=== PATIENT | male | born 1950 | race Caucasian/White ===

== ENCOUNTER 2017-10-25 15:38 | Outpatient (CLI) | payer MEDICARE ==
[2017-10-25 16:22] LABS: #Eosinphils 0.2 thou/uL (0.0-0.7); #Lymphocytes 1.1 thou/uL (1.20-3.40); #Monocytes 0.6 thou/uL (0.11-0.59); #Neutrophils 3.2 thou/uL (1.40-6.50); %Basophils 0.2 % (0.0-1.0); %Eosinophils 4.4 % (0.0-10.0); %Lymphocytes 20.9 % (21.0-51.0); %Monocytes 11.4 % (0.0-10.0); Hematocrit 50.2 % (42.0-52.0); Mean Platelet Volume 6.9 fL (7.4-10.4); Red Blood Cell (RBC) Count 5.28 mill/uL (4.70-6.10)
== END 2017-10-25 15:39 | disposition home or self-care (01) ==
LOC: LABBT 15:38
PROVIDERS: ATTEND Orthopaedic Surgery Hand Surgery
DX: Z01.812 Encounter for preprocedural laboratory examination (principal); M65.312 Trigger thumb, left thumb
CPT/HCPCS: 85025

== ENCOUNTER 2017-10-26 07:33 | Day surgery (SDC) | payer MEDICARE ==
[2017-10-25 15:49] VITALS: BMI 31.0
[2017-10-26] MEDS ORDERED: CEFAZOLIN/Water 2 GM/20 ML SYRINGE ONE (08:09)
[2017-10-26] MEDS ORDERED: Labetalol HCl 100 MG/20 ML VIAL ONE (08:09)
[2017-10-26] MEDS ORDERED: Betamet Acet/Betamet Na Ph 30 MG/5 ML VIAL ONE (09:15)
[2017-10-26] MEDS ORDERED: Bupivacaine PF 0.5% 30 ML VIAL ONE (09:15)
[2017-10-26] MEDS ORDERED: Bacitracin Zinc Ointment 30 gm TUBE ONE (09:15)
[2017-10-26] MEDS ORDERED: Fentanyl 100 MCG/2 ML VIAL ONE (09:46)
[2017-10-26] MEDS ORDERED: Midazolam HCl 2 mg/2 ml Vial ONE (10:07)
[2017-10-26] MEDS ORDERED: Ketorolac Tromethamine 30 MG/ML VIAL ONE ×2 (11:10→16:49)
--- NOTE | 2017-10-26 14:02 | OP ---
PREOPERATIVE DIAGNOSIS: Left thumb trigger digit. POSTOPERATIVE DIAGNOSIS: Left thumb trigger digit. FINDINGS: Very thick A1 swapnil, trigger thumb with some early scalloping of the tendon, but no lacer ation, flexor pollicis longus. PROCEDURE PERFORMED: Left thumb trigger digit release. TOURNIQUET TIME: 11 minutes. BLOOD LOSS: 5 mL. INJECTABLE: 8 mL of 0.5% Marcaine given before incision. COMPLICATIONS: None. INDICATIONS FOR PROCEDURE: The patient failed conservative treatment including injection, now has st age 3-4 triggering with decreased motion. DESCRIPTION OF PROCEDURE: After successful general LMA technique by [facility], the patient limb prepped and draped. Tourniquet inflated to 250 mmHg pressure after time out was given. He the n had the longitudinal incision outlined which is 1.5 cm long, centered over the palpable subcutaneou s A1 swapnil mass. Carried through skin, subcutaneous tissue, identified both the ulnar and radial di gital nerves, protected them, they were not in those field. Then, with them gently retracted, we vis ualized the A1 swapnil, released in the midline with a Platinum blade. We then lifted the tendon up out of the bed and found no masses. Again, we saw all the impediments. We saw some early fraying of th e tendon, but no true laceration was seen. The tourniquet was deflated. Hemostasis obtained. A 3 m L of Celestone dripped over the tendon. Wound was closed in interrupted 4-0 nylon. The patient left the operating room after given an additional 4 mL of 0.5% Marcaine with a soft dressing. No evidenc e of anesthetic or operative complication.
[2017-10-26] MEDS ORDERED: ePHEDrine/0.9% NaCl/PF SYRINGE 50 mg/10 ml ONE (16:49)
[2017-10-26] MEDS ORDERED: diphenhydrAMINE 50 MG/ML VIAL ONE (16:49)
[2017-10-26] MEDS ORDERED: Metoclopramide HCl 10 MG/2 ML VIAL ONE (16:49)
[2017-10-26] MEDS ORDERED: Propofol 200 MG/20 ML VIAL ONE (16:49)
[2017-10-26] MEDS ORDERED: Ondansetron HCl/PF 4 MG/2 ML Vial ONE (16:49)
[2017-10-26] MEDS ORDERED: Dexamethasone 20 MG/5 ML VIAL ONE (16:49)
[2017-10-26] MEDS ORDERED: Glycopyrrolate 0.2 MG/ML 5 ML SYRINGE ONE (16:49)
[2017-10-26] MEDS ORDERED: Lidocaine 1% PF 5 ML VIAL ONE (16:49)
== END 2017-10-26 12:20 | disposition home or self-care (01) ==
LOC: SDC 07:33
PROVIDERS: ATTEND Orthopaedic Surgery Hand Surgery
PROC: 0LN80ZZ Release Left Hand Tendon, Open Approach (ICD-10-PCS; principal; 2017-10-26)
DX: M65.312 Trigger thumb, left thumb (principal); I25.10 Atherosclerotic heart disease of native coronary artery without angina pectoris; I10 Essential (primary) hypertension; E03.9 Hypothyroidism, unspecified; H91.90 Unspecified hearing loss, unspecified ear; M54.9 Dorsalgia, unspecified; G89.29 Other chronic pain; F10.11 Alcohol abuse, in remission; M19.91 Primary osteoarthritis, unspecified site; E78.5 Hyperlipidemia, unspecified; E29.1 Testicular hypofunction; G47.33 Obstructive sleep apnea (adult) (pediatric); F17.200 Nicotine dependence, unspecified, uncomplicated; Z79.82 Long term (current) use of aspirin; Z79.51 Long term (current) use of inhaled steroids; Z79.52 Long term (current) use of systemic steroids; Z79.899 Other long term (current) drug therapy; Z91.048 Other nonmedicinal substance allergy status; Z95.1 Presence of aortocoronary bypass graft; Z98.890 Other specified postprocedural states
CPT/HCPCS: 96372; J0131; J0702; J1100; J1200; J1885; J2001; J2250; J2405; J2704; J2765; J3010; S0020

== ENCOUNTER 2017-12-12 14:24 | Outpatient (CLI) | payer MEDICARE ==
--- NOTE | 2017-12-12 15:52 | MRI ---
EXAM: MRI OF BRAIN WITHOUT CONTRAST 12/12/17 HISTORY: Memory deficit. Symptoms x1 year. COMPARISON: None. TECHNIQUE: Brain MRI is performed without intravenous gadolinium administration. Multisequential, multiplanar im aging is performed. FINDINGS: No hemorrhage on the axial gradient echo sequence. Calvarium has a normal T1 marrow signal intensity. Midline brain parenchymal structures are unremarkable. No parenchymal mass, mass effect or midline shift. Brain volume is age appropriate. Cortical og-whi te matter differentiation is preserved. Ventricles and sulci are patent and symmetric. Minimal T2 and FLAIR white matter hyperintensities, likely due to chronic small vessel ischemic avendaño e. Remote lacunar infarct involving the medial left thalamus. Central arterial flow voids are maintained . Absent restricted diffusion. IMPRESSION: 1. No acute intracranial process. 2. Age appropriate atrophy. 3. Minimal chronic small vessel ischemic changes of the white matter. POS: EYAL
== END 2017-12-12 14:25 | disposition home or self-care (01) ==
LOC: SCSMRI 14:24
PROVIDERS: ATTEND Family Medicine
DX: R41.3 Other amnesia (principal); I10 Essential (primary) hypertension; I25.10 Atherosclerotic heart disease of native coronary artery without angina pectoris; G93.89 Other specified disorders of brain
CPT/HCPCS: 70551

== ENCOUNTER 2018-01-31 13:49 | Outpatient (CLI) | payer MEDICARE ==
--- NOTE | 2018-01-31 15:46 | CT ---
CT LUMBAR SPINE: Technique: Multiple axial tomograms were obtained through the lumbar spine with multiplanar reconstru ction. Indications: Lumbar radiculopathy. Prior lumbar surgery. FINDINGS: The lumbar vertebra maintain height and alignment. Degenerative disc changes are seen with loss of di sc space at all levels. There is gas in the disc space at several levels. There are pedicle screws in place transfixing L3, L4, and L5. There is fracture of the pedicle screw on the left at L5. Pedicle screw on the right at L5 shows increased lucency surrounding the proximal portion of this ped icle screw within the L5 pedicle suggesting loosening and instability at this level. Posterior pricilla ctomy changes are noted at L3-4 and L4-5. L1-2: Mild disc bulge. Mild facet hypertrophy. No significant central canal or foraminal stenosis. L2-3: Mild diffuse disc bulge. Facet and ligamentous hypertrophy is more pronounced. Moderate central canal stenosis. Mild bilateral foraminal narrowing from the disc bulge and facet hypertrophy. L3 pedical screws appear adequately positioned. L3-4: Posterior bulge and spurring abutt the thecal sac. Posterior laminectomy change. No central can al stenosis. Mild foraminal narrowing from the facet hypertrophy. The left pedicle screw mildly obscures the lateral recess on the left. There are posterior laminectom y change. No central canal stenosis. L4-5: There is posterior spurring abutting the thecal sac and there is bilateral foraminal stenosis d ue to hypertrophic change. Pedicle screws at L5 appear adequately positioned. There is fracture of the pedicle screw on the left as noted above and there is apparent loosening in the right pedicle screw within the pedicle as note d above. L5-S1: Broad based bulge abuts the anterior thecal sac. There is bilateral foraminal stenosis due to diffuse disc bulge and hypertrophic change encroaching into the foramina bilaterally. IMPRESSION: 1. Post op changes with pedicle screws at L3, L4, and L5 levels. Fracture of the pedicle screw on the left at L5 and loosening of the pedicle screw within the pedicle on the right at L5 as described abo ve. 2. Findings at each disc space as noted above. POS: MONROE
== END 2018-01-31 13:50 | disposition home or self-care (01) ==
LOC: TBSIIMAG 13:49
PROVIDERS: ATTEND Neurological Surgery
DX: M51.16 Intervertebral disc disorders with radiculopathy, lumbar region (principal); M48.061 Spinal stenosis, lumbar region without neurogenic claudication; M99.83 Other biomechanical lesions of lumbar region; T84.296A Other mechanical complication of internal fixation device of vertebrae, initial encounter
CPT/HCPCS: 72131

== ENCOUNTER 2018-03-06 14:07 | Outpatient (CLI) | payer MEDICARE ==
[2018-03-06 15:39] LABS: Hemoglobin 15.8 g/dL (14.0-18.0); Mean Corpuscular HGB CONC 33.1 g/dL (32.0-36.0); Mean Corpuscular Volume 93.7 fl (80.0-94.0); Mean Platelet Volume 7.4 fL (7.4-10.4); Platelet Count 152 thou/uL (130-400); RBC Distribution Width 14.9 % (11.5-14.5); Red Blood Cell (RBC) Count 5.08 mill/uL (4.70-6.10); White Blood Cell (WBC) Count 5.1 thou/uL (4.8-10.8)
[2018-03-06 15:57] LABS: Anion Gap 12 mmol/L (10-20); BUN (Urea Nitrogen) 17 mg/dL (8.4-25.7); Calc. Creatinine Clearance 0 mL/min (70-130); Calcium 9.8 mg/dL (7.8-10.44); Carbon Dioxide 29 mmol/L (23-31); Chloride 101 mmol/L (98-107); Estimated GFR-MDRD 57; Glucose 106 mg/dL (80-115); Potassium 4.2 mmol/L (3.5-5.1); Sodium 138 mmol/L (136-145)
== END 2018-03-06 14:08 | disposition home or self-care (01) ==
LOC: LABBT 14:07
PROVIDERS: ATTEND Neurological Surgery
DX: Z01.818 Encounter for other preprocedural examination (principal); M54.16 Radiculopathy, lumbar region
CPT/HCPCS: 80048; 85027; 93005; 93010

== ENCOUNTER 2018-03-06 14:30 | Inpatient (IN) | payer MEDICARE ==
[2018-03-06 14:31] VITALS: BMI 29.3
--- NOTE | 2018-03-19 23:11 | HP ---
HISTORY OF PRESENT ILLNESS: Mr. Irizarry is known to us for distant lumbar decompression and fusion in 2014 and returns now for roughly 6 months for rest of the L4 pain bilaterally, right worse than left . He has a new CT scan that reveals fracture of one of his L5 screws as well as loosening of the oth er L5 screw. He hopes to move forward with a surgical treatment to remedy this. PAST MEDICAL HISTORY: Significant for coronary arterial disease, hypotestosteronism, hypertension, h yperlipidemia, hypothyroidism, and seasonal allergies. CURRENT MEDICATIONS: Crestor, losartan, carvedilol, lansoprazole, levothyroxine, testosterone, cloni dine, and fluticasone. ALLERGIES: No known drug allergies. PHYSICAL EXAMINATION: The patient is alert and oriented x3. Gait is mildly antalgic. Lower extremi ty motor exam is normal. ASSESSMENT: Lumbar fusions screw fracture with back pain and lumbar radiculopathy. PLAN: Dr. Rainey met with the patient, reviewed imaging and advocated for exploration of fusion const ruct removal of hardware, L4 facetectomy and extension of fusion. He explained to the patient the ri sks, benefits, and alternatives of the procedure. The patient expressed understanding and would like to move forward with surgery as discussed. I do believe the patient is mentally competent and capab le of making medical decision for his myself and we will move forward with surgery as planned. Valeriano Betancourt PA-C, dictating for Dr. Raniey.
[2018-03-27] MEDS ORDERED: Fentanyl 100 MCG/2 ML VIAL ONE ×2 (06:26→09:48)
[2018-03-27] MEDS ORDERED: CEFAZOLIN/Water 2 GM/20 ML SYRINGE ONE (06:43)
[2018-03-27] MEDS ORDERED: Bupivacaine HCl 0.5%/Epinephrine 1:200,000/PF 30 ml Vial ONE (07:55)
[2018-03-27] MEDS ORDERED: Thrombin 5000 UNITS/5 ML VIAL ONE (08:12)
[2018-03-27] MEDS ORDERED: HYDROmorphone 0.5 MG/0.5 ML SYRINGE ONE (09:11)
--- NOTE | 2018-03-27 10:28 | OP ---
DATE OF PROCEDURE: 03/27/2018 SURGEON: Brennen Rainey M.D. RECREATION THERAPY AIDES TEACHER: None. INDICATIONS: Pain and hardware malfunction. PROCEDURES: Exploration of fusion, removal of hardware, replacement of hardware, placement of allogr aft, placement of autograft, and facetectomy at L4-5. ANESTHESIA: General. TECHNIQUE: The patient was brought into the operating room and placed under anesthesia. He was flip ped from a supine to prone position on the operating room table. His old linear incision was identif ied and prepped and draped in the usual sterile fashion. Following appropriate operative pause, the incision was created. The soft tissues were swept away from midline. Self-retaining retractors were placed in the wound for optimal exposure. After confirming the appropriate levels of C-arm fluorosc opy, I was able to identify all six screw heads. All set screws were removed. The two rods were rem merritt. The lower L5 screws were removed bilaterally as these were the fractured screws. Two smaller rods were then placed across the screw heads at L3 and L4 where set screws were placed and final tigh tened. I then redirected my attention to the lateral recesses at L4-5 and performed generous facetec miguel and foraminotomy over the right more so than the left exiting nerve roots. Allograft and autogr aft material was then placed within the confines of the instrumentation construct. The wound was the n irrigated. Hemostasis was maintained throughout. The wound was then closed in anatomic layers and a pressure dressing was applied. There were no known procedural complications.
[2018-03-27] MEDS ORDERED: Ondansetron HCl/PF 4 MG/2 ML Vial IM PRN (11:11)
[2018-03-27] MEDS ORDERED: Promethazine 25 MG TAB PO PRN (11:11)
[2018-03-27] MEDS ORDERED: Promethazine HCl 25 MG/ML VIAL IM PRN (11:11)
[2018-03-27] MEDS ORDERED: Cyclobenzaprine 10 MG TAB PO PRN (11:11)
[2018-03-27] MEDS ORDERED: Acetaminophen/Codeine 30-300mg Tablet PO PRN ×2 (11:11)
[2018-03-27] MEDS ORDERED: Promethazine HCl 12.5 MG SUPP PR PRN (11:11)
[2018-03-27] MEDS ORDERED: Morphine 4 MG/ML VIAL SLOW IVP PRN (11:17)
[2018-03-27] MEDS: Ketorolac Tromethamine 30 MG/ML VIAL IVP SCH ×3 (12:05→23:23)
[2018-03-27] MEDS: Sodium Chloride 0.9% 1,000 ML IV SCH (12:05)
[2018-03-27] MEDS ORDERED: HYDROcodone/Acetaminophen 10/325 mg Tablet PO PRN (12:22)
[2018-03-27] MEDS ORDERED: PROPOFOL 200 MG/20 ML VIAL ONE (13:54)
[2018-03-27] MEDS ORDERED: ePHEDrine/0.9% NaCl/PF SYRINGE 50 mg/10 ml ONE (13:54)
[2018-03-27] MEDS ORDERED: Dexamethasone 20 MG/5 ML VIAL ONE (13:54)
[2018-03-27] MEDS ORDERED: Ondansetron HCl/PF 4 MG/2 ML Vial ONE (13:54)
[2018-03-27] MEDS ORDERED: diphenhydrAMINE 50 MG/ML VIAL ONE (13:54)
[2018-03-27] MEDS ORDERED: Metoclopramide HCl 10 MG/2 ML VIAL ONE (13:54)
[2018-03-27] MEDS ORDERED: Ketorolac Tromethamine 30 MG/ML VIAL ONE (13:54)
[2018-03-27] MEDS ORDERED: Lidocaine 1% PF 5 ML VIAL ONE (13:54)
[2018-03-27] MEDS: CEFAZOLIN/Water 2 GM/20 ML SYRINGE SLOW IVP SCH ×2 (14:09→21:28)
[2018-03-27] MEDS ORDERED: Prevnar 13-Val Conj/PF 0.5 ML SYRINGE IM ONE (16:00)
[2018-03-27] MEDS ORDERED: Losartan 25 MG TAB PO SCH (21:00)
[2018-03-27] MEDS ORDERED: Rosuvastatin 20 MG TAB PO SCH (21:00)
[2018-03-27] MEDS: Carvedilol 6.25 MG TAB PO SCH (21:28)
[2018-03-27] MEDS: cloNIDine 0.1 MG TAB PO SCH (21:30)
[2018-03-27] MEDS: Morphine 4 MG/ML VIAL SLOW IVP PRN (23:31)
[2018-03-28] MEDS: Sodium Chloride 0.9% 1,000 ML IV SCH (02:16)
[2018-03-28] MEDS: Morphine 4 MG/ML VIAL SLOW IVP PRN (04:01)
[2018-03-28] MEDS ORDERED: Levothyroxine Sodium 50 MCG TAB PO SCH (06:00)
[2018-03-28] MEDS: Ketorolac Tromethamine 30 MG/ML VIAL IVP SCH ×2 (06:03→11:55)
[2018-03-28 08:16] VITALS: BP 125/79; TEMP 98.3
[2018-03-28] MEDS: cloNIDine 0.1 MG TAB PO SCH (08:37)
[2018-03-28] MEDS: Carvedilol 6.25 MG TAB PO SCH (08:38)
[2018-03-28] MEDS ORDERED: Fluticasone Propionate Nasal Spray 16 gm Bottle NASAL SCH (09:00)
[2018-03-29] MEDS ORDERED: Anastrozole 1 MG TAB PO SCH (09:00)
[2018-04-03] MEDS ORDERED: TESTOSTERONE CYPIONATE 50 MG IM SCH (09:00)
== END 2018-03-28 12:00 | disposition home or self-care (01) | DRG 460 ==
LOC: CANPREIN → SURG A 03-27 05:39 → SURG B 03-27 10:27
PROVIDERS: ADMIT Neurological Surgery; ATTEND Neurological Surgery
PROC: 0SG0071 Fusion of Lumbar Vertebral Joint with Autologous Tissue Substitute, Posterior Approach, Posterior Column, Open Approach (ICD-10-PCS; principal; 2018-03-27)
PROC: 0SP004Z Removal of Internal Fixation Device from Lumbar Vertebral Joint, Open Approach (ICD-10-PCS; 2018-03-27)
PROC: 01NB0ZZ Release Lumbar Nerve, Open Approach (ICD-10-PCS; 2018-03-27)
DX: T84.226A Displacement of internal fixation device of vertebrae, initial encounter (principal); M54.16 Radiculopathy, lumbar region; I25.10 Atherosclerotic heart disease of native coronary artery without angina pectoris; I10 Essential (primary) hypertension; E78.5 Hyperlipidemia, unspecified; E03.9 Hypothyroidism, unspecified; Z79.899 Other long term (current) drug therapy; Y83.1 Surgical operation with implant of artificial internal device as the cause of abnormal reaction of the patient, or of later complication, without mention of misadventure at the time of the procedure
CPT/HCPCS: 76001; 90471; 90670; A4216; C1713; C1768; G0009; J0670; J1100; J1170; J1200; J1885; J2001; J2270; J2405; J2704; J2765; J3010

== ENCOUNTER 2018-05-16 08:33 | Outpatient (CLI) | payer MEDICARE ==
--- NOTE | 2018-05-16 09:10 | RAD ---
TWO VIEWS OF LUMBOSACRAL SPINE: COMPARISON: CT lumbar spine 01/31/18. HISTORY: Lumbar radiculopathy. The patient has had surgery. Followup exam. FINDINGS: Two views of the lumbosacral spine show postsurgical changes from L3 through L5. There are previousl y seen fracture pedicle screws at L5. Since the prior examination, the more inferior aspect of the r ods span the pedicle screws and the more posterior aspect of the L5 pedicle screws have been removed. There is still hardware spanning the L3 and L4 pedicle screws. No perihardware lucency is identifi ed. Moderate posterior facet arthrosis is seen in the lower lumbosacral spine. The patient has had laminectomies at L4 and L5. The vertebral bodies demonstrate normal alignment without subluxation. IMPRESSION: Postsurgical changes of the lumbar spine as above. POS: EYAL
== END 2018-05-16 08:34 | disposition home or self-care (01) ==
LOC: TBSIIMAG 08:33
PROVIDERS: ATTEND Neurological Surgery
DX: M54.16 Radiculopathy, lumbar region (principal); M54.5 Low back pain; Z98.890 Other specified postprocedural states
CPT/HCPCS: 72100

== ENCOUNTER 2018-06-27 14:26 | Outpatient (CLI) | payer MEDICARE | END 2018-06-27 14:27 | disposition home or self-care (01) | LOC: BICULT 14:26 | PROVIDERS: ATTEND Family Medicine | DX: Q27.9 Congenital malformation of peripheral vascular system, unspecified (principal) | CPT/HCPCS: 93923 ==

== ENCOUNTER 2018-07-26 08:32 | Inpatient (IN) | payer MEDICARE, OTHER ==
[2018-07-26] MEDS ORDERED: Atropine Sulfate 1 mg/10 ml Syringe ONE (09:18)
[2018-07-26] MEDS ORDERED: DOBUTamine 500 mg/250 ml 250 ML ONE (09:22)
--- NOTE | 2018-07-26 09:32 | RAD ---
PORTABLE CHEST 1 VIEW: Date: 07/26/18 Time: 0858 hours HISTORY: Chest pain, atrial flutter. FINDINGS: There are changes of median sternotomy. The heart size is normal. The lungs are expanded without loba r consolidation, pneumothoraces, or pleural effusions. IMPRESSION: No acute process. POS: MONROE
[2018-07-26 09:33] LABS: ALT (SGPT) 27 U/L (8-55); AST (SGOT) 23 U/L (5-34); Albumin 3.9 g/dL (3.4-4.8); Alkaline Phosphatase 53 U/L (40-150); Anion Gap 11 mmol/L (10-20); BUN (Urea Nitrogen) 18 mg/dL (8.4-25.7); Bilirubin, Total 0.8 mg/dL (0.2-1.2); CK (CPK) 91 U/L (30-200); Calc. Creatinine Clearance 0 mL/min (70-130); Calcium 9.1 mg/dL (7.8-10.44); Carbon Dioxide 24 mmol/L (23-31); Chloride 105 mmol/L (98-107); Estimated GFR-MDRD 67; Globulin 2.4 g/dL (2.4-3.5); Glucose 136 mg/dL (80-115); Lipase 14 U/L (8-78); Magnesium 1.7 mg/dL (1.6-2.6); Potassium 3.9 mmol/L (3.5-5.1); Protein, Total 6.3 g/dL (5.8-8.1); Sodium 136 mmol/L (136-145)
[2018-07-26 09:36] LABS: CKMB 1.5 ng/mL (0-6.6); Troponin I Less than 0.010 ng/mL (< 0.028)
[2018-07-26 10:15] LABS: INR-International Normal Ratio 1.1; PTT 23.5 SEC (22.9-36.1); Prothrombin Time 14.3 SEC (12.0-14.7)
[2018-07-26 10:22] LABS: #Eosinphils 0.1 thou/uL (0.0-0.7); #Lymphocytes 0.7 thou/uL (1.20-3.40); #Monocytes 0.5 thou/uL (0.11-0.59); #Neutrophils 4.9 thou/uL (1.40-6.50); %Eosinophils 1.8 % (0.0-10.0); %Lymphocytes 10.9 % (21.0-51.0); %Monocytes 7.8 % (0.0-10.0); %Neutrophils 79.6 % (42.0-75.0); Hemoglobin 14.9 g/dL (14.0-18.0); Mean Corpuscular HGB CONC 30.6 g/dL (32.0-36.0); Mean Corpuscular Hemoglobin 26.5 pg (27.0-31.0); Mean Corpuscular Volume 86.8 fL (78.0-98.0); Mean Platelet Volume 8.5 fL (7.4-10.4); Platelet Count 133 thou/uL (130-400); RBC Distribution Width 15.6 % (11.5-14.5); Red Blood Cell (RBC) Count 5.63 mill/uL (4.70-6.10); White Blood Cell (WBC) Count 6.1 thou/uL (4.8-10.8)
[2018-07-26] MEDS ORDERED: ISOVUE-370 76%-LOCM 1 ML ONE (10:34)
--- NOTE | 2018-07-26 12:14 | HP ---
PRIMARY CARE PHYSICIAN: Dr. Winnie Miller CHIEF COMPLAINT: Feeling weak and then passed out. HISTORY OF PRESENT ILLNESS: Mr. Irizarry is a pleasant 68-year-old gentleman that has a history of cor onary artery disease as well as hypertension. He also has had a bypass surgery about 13 years ago. He says that today he was visiting a school when he suddenly felt weird and felt tingling. He says h e felt like the blood was leaving his head and then he suddenly got sweaty and nauseated. He felt pa in across the left side of his chest and says it was like an ache and it was sharp. It was rated at about a 4/10. He says that he knew something was wrong and called out to his family and says that he needed to go to the hospital. By this time, he was walking over from the foyer to the school to a [facility] and then fell over. His says that his eyes rolled back in his head and they called an ambu bev. When he arrived to the hospital, he was found to be in atrial flutter with a slow ventricular rate with heart rates in the 30s and 40s. He was started on dobutamine under the instruction of the logistics assistant union steward. His heart rate then actually improved slightly, but his blood pressure went e xtremely high and now he has been taken off of dobutamine and is being placed in the ICU for further treatment. Currently, the patient says he feels fine. He denies having any chest pain, no shortness of breath, no PND, no orthopnea and says prior to this event he was feeling fine with no symptoms wh atsoever. He denies any leg pain or leg swelling and says that ever since his bypass surgery 13 year s ago he has been doing well. REVIEW OF SYSTEMS: All systems were reviewed and are negative except for that mentioned in history o f present illness. PAST MEDICAL HISTORY: Coronary artery disease which was found during a routine stress test, hyperten kisha, hyperlipidemia, hypothyroidism, and a history of what sounds like hypotestosteronism and occasi onally he has to have subtherapeutic phlebotomies due to elevated hemoglobin. However, he denies hav ing a disease such as polycythemia. PAST SURGICAL HISTORY: Coronary artery bypass grafting and he has had 3 lumbar surgeries. ALLERGIES: No known drug allergies. SOCIAL HISTORY: He is . His is the surrogate decision maker and her name is Shirin Marquze. No alcohol use or drugs. FAMILY HISTORY: Significant for heart disease in his mother and uncle. His mother had a pacemaker. Grandmother had heart disease as well as their maternal grandfather. MEDICATIONS: Levothyroxine 50 mcg daily, carvedilol 6.25 mg twice a day, losartan 100 mg daily, sert raline 50 mg daily, Crestor 5 mg daily, clonidine 0.1 mg twice a day, testosterone cypionate 100 mg p er mL and 1 mL once weekly, anastrozole 1 mg twice a week. PHYSICAL EXAMINATION: GENERAL: He is alert and oriented. He appears to be in no acute distress. He is well-developed, we ll-nourished. VITAL SIGNS: Heart rate is ranging between 30s and 40s. His blood pressure currently is around 105- 106 systolic, respiratory rate of 16, and he is afebrile. HEENT: Pupils are equal, round, and reactive. Extraocular muscles are intact. His sclerae are anic teric. Throat: There is no erythema, no exudates. NECK: No adenopathy, no bruits. LUNGS: Clear to auscultation. There is no wheezing, no rales, no rhonchi. CARDIOVASCULAR: Heart rate is slow and bradycardic. There are no murmurs, no clicks, no rubs. ABDOMEN: Soft, it is nontender, nondistended. Positive for bowel sounds. There is no rebound, no g uarding. EXTREMITIES: There is no edema. There is no calf tenderness or muscle tenderness, no joint effusion s. SKIN/INTEGUMENT: His lower extremities are hairless. There are no lesions, skin lesions or rash and he has got palpable dorsalis pedis pulses. NEUROLOGIC: Cranial nerves are intact and muscle strength is also intact in upper and lower extremit ies. LABORATORY: White blood cell count 6.1, hemoglobin 14.9, hematocrit is 48.8, platelet count is 133. INR is 1.1. Sodium 136, potassium 3.9, chloride is 105, CO2 is 24, BUN of 18, creatinine 1.1, gluco se is 136. Troponin is less than 0.01. EKG and this is by my reading, he is in atrial flutter with a very clear ____ like flutter wave with a heart rate of 40 and this is by my reading. He also had a chest x-ray which his heart size looks n ormal. There was no evidence of any airspace disease nor effusions, pacer pads can be seen overlying the chest and this is by my reading also. ASSESSMENT AND PLAN: 1. This is a 68-year-old gentleman who is being admitted to the ICU for atrial flutter with slow montserrat tricular rate. He has already been evaluated by the logistics assistant union steward in the ER and will be admit michael to the ICU. We will continue to monitor him with transcutaneous pacers in place. It is my under standing that he may have an attempted cardioversion later today and also will be evaluated by Electr ophysiology. 2. With regards to hypertension. Currently, his blood pressure is controlled. He is n.p.o. and we will treat symptomatically as needed. Once he is more stable, then his oral antihypertensives can be restarted. We will wait to see what the logistics assistant recommends with regards to anticoagulation. Th erefore, we will hold off on any Lovenox at this time and will defer to Cardiology.
[2018-07-26 12:24] LABS: Troponin I Less than 0.010 ng/mL (< 0.028)
[2018-07-26] MEDS ORDERED: Enoxaparin Sodium 40 MG/0.4 ML SYRINGE SC SCH (13:30)
[2018-07-26] MEDS ORDERED: Sodium Chloride 0.9% 500 ML IV SCH (14:30)
[2018-07-26 15:50] LABS: Troponin I 0.014 ng/mL (< 0.028)
[2018-07-26] MEDS ORDERED: DOBUTamine 500 mg/250 ml 500 MG in Premix Bag 1 BAG IVPB SCH (16:00)
[2018-07-26] MEDS ORDERED: Acetaminophen 325 MG TAB PO PRN (16:37)
[2018-07-26] MEDS ORDERED: Atropine Sulfate 1 mg/10 ml Syringe IVP PRN (16:43)
--- NOTE | 2018-07-26 18:34 | CON ---
DATE OF SERVICE: 07/26/2018 PRIMARY COMPUTER SYSTEMS SOFTWARE ENGINEER: Isaias Polo M.D. REASON FOR CONSULTATION: Syncope, atrial flutter and hypotension. HISTORY OF PRESENT ILLNESS: Mr. Irizarry is a very pleasant 68-year-old white gentleman who comes to [facility] after a syncopal spell. He was at a school function and suddenly felt different, felt we ird sensation all over his body and tingling on the arms, suddenly describes sensation of the blood l eaving his head and suddenly got sweaty, nauseated and felt the pain across the left side of his ches t. The family then grabbed him as he was starting to lose consciousness. He lost a few minutes ther e that he does not remember. The family stated that he was not completely flaccid, but he seemed lik e he was himself. They were able to sit him down and 911 was called and eventually he was brou ght in. En route, he had an EKG that showed atrial flutter with slow ventricular response, heart tj jameson was in the 30s to 40s and Cardiology is being consulted for this. We actually saw him earlier toda y in the morning when he was still in the ER. I would recommend that he be given 1 mg of atropine, w hich he receives. His heart rate went up nicely to the 50s and 60s and then, we also started a dopam ine drip which actually made his blood pressure go from the 70s/40 to 200s/120. This was titrated do wn until it had to be stopped and his blood pressure does seem to be very high, and eventually on my evaluation, his blood pressure was in the 120-130s/60s. He still looked a little bit sluggish, but ct jameson was awake and not feeling any of his bradycardia. He has never been told in the past that he is at rial fibrillation or atrial flutter. I reviewed his chart from Dr. Polo and he has never had a diagnosis of atrial fibrillation or atrial flutter in the past. PAST MEDICAL HISTORY: 1. Coronary artery disease, status post bypass 13 years ago. 2. Hypertension. 3. Hyperlipidemia. 4. Hypothyroidism. 5. Low testosterone. 6. What appears to be polycythemia with elevated hemoglobin, needing phlebotomies, but he has never been told he has the diagnosis of polycythemia. PAST SURGICAL HISTORY: 1. CABG 13 years ago. 2. Lumbar surgeries. OUTPATIENT MEDICATIONS: Include, 1. Levothyroxine 50 mcg a day. 2. Carvedilol 6.25 mg b.i.d. 3. Losartan 100 mg a day. 4. Sertraline 50 mg a day. 5. Crestor 5 mg a day. 6. Clonidine 0.1 mg twice a day. 7. Testosterone 100 mg per mL. 8. Anastrozole twice a week. ALLERGIES: No known drug allergies. SOCIAL HISTORY: No alcohol, tobacco, or drugs. FAMILY HISTORY: Noncontributory. REVIEW OF SYSTEMS: A 12-point review of systems was done and is all negative unless stated in the hi story of present illness. PHYSICAL EXAMINATION: VITAL SIGNS: Temperature 98.4, pulse 40, respiratory 17, satting 94% on room air, blood pressure 117 /61. GENERAL: Awake, alert, oriented to person, place and time, in no distress. HEENT: Normocephalic, atraumatic. NECK: Supple. LUNGS: Clear. CARDIOVASCULAR: Irregularly irregular. Heart rate in the 40s. NECK: No murmurs. ABDOMEN: Soft, positive bowel sounds. EXTREMITIES: No edema. SKIN: Warm and dry. LABORATORY WORK: Reviewed. CBC was unremarkable. Hemoglobin of 14.9, platelet 133. Coags were nor mal. Chemistries were unremarkable except for glucose of 133. Troponins were negative x3 so far. C hest x-ray was unremarkable. EKG showed atrial flutter with variable AV block with slow ventricular response, heart rate in the 40s. ASSESSMENT AND PLAN: 1. Atrial flutter, new onset. 2. Slow ventricular response and bradycardia. 3. Syncope. 4. Hypotension and bradycardia. 5. Possible vasovagal syncope. 6. Coronary artery disease, stable. No evidence of acute coronary syndrome. PLAN: 1. Agree with atropine bedside in case he needs a bump on his heart rate. 2. He may need a CRISTIAN cardioversion in the next few days if he starts going too fast or if he becomes hypotensive again. He has responded to dopamine, so this may also be an option. 3. EP consultation is appreciated. He will need an EP study with possible ablation next week. Befo re that happens, we will make sure there is nothing else going on like a pulmonary embolism or some s ort of mass impinging on the vagal nerve causing him to be hypotensive and bradycardia. We will do f ull anticoagulation for stroke prophylaxis for atrial flutter. Thank you for letting us participate in the care of your patient. We will follow. Over 45 minutes of critical care were delivered at bedside.
--- NOTE | 2018-07-26 18:44 | CT ---
CT PULMONARY ANGIOGRAM WITH IV CONTRAST AND 3D POSTPROCESSIN07/26/18 HISTORY: Atrial fibrillation, shortness of breath. FINDINGS: There is good contrast opacification of the pulmonary arterial vasculature without filling defects to suggest pulmonary embolism. There are vascular calcifications without evidence of aneurysmal dilatat ion of the thoracic aorta. No pleural or pericardial effusions are seen. There is mediastinal and bilateral hilar lymphadenopathy. Numerous scattered pulmonary nodules are se en measuring up to 8 mm. There are degenerative changes in the spine. IMPRESSION: 1. No CT evidence of pulmonary embolism. 2. Findings are highly suspicious for intrathoracic metastatic disease. POS: EYAL
[2018-07-26] MEDS: Sodium Chloride 0.9% 1,000 ML IV SCH (19:54)
[2018-07-26] MEDS: Enoxaparin Sodium 80 MG/0.8 ML SYRINGE SC SCH (20:07)
--- NOTE | 2018-07-26 22:43 | CON ---
DATE OF CONSULTATION: 07/26/2018 ELECTROPHYSIOLOGY CONSULTATION REPORT REFERRING PHYSICIAN: Dr. Castellon. I am seeing Mr. Duprees at [facility] ICU as an electrophysiology technical marketing consultant. His problems are: 1. Newly found atrial flutter with slow ventricular response and associated hypertension. 2. Syncopal spell. 3. Atypical chest pain. Negative troponins. 4. History of coronary artery disease, post-coronary artery bypass grafting surgery in 2004. 5. History of hypotestosteronism. 6. History of elevated hematocrit with phlebotomies. 7. Risk factors including hypertension, hyperlipidemia. 8. History of hypothyroidism. ALLERGIES: None noted. MEDICATIONS AT HOME: Included aspirin, clonidine, testosterone, levothyroxine, losartan, carvedilol, Crestor, sertraline, anastrozole, hydrocodone/APAP. SUBJECTIVE: Mr. Irizarry is here after a syncopal spell. This happened while he was in a [employer], f elt needing a bowel movement. He indeed had a bowel movement and then developed dizziness, chest justina ns, and tingling sensations. Shortly after that he did pass out. He then quickly came to, but gi nues to feel poorly. He was brought to the ER, he was found to be in atrial flutter, he was given at ropine and dopamine, which improves his heart rates, but his blood pressure actually started to becom e elevated. On the other hand, initially his blood pressure was running low. He did get some fluid boluses as well to make his blood pressure up and now he is steady. He still to be the lower h eart rates. Currently, he has free of chest pains. He has no dizziness, loss of consciousness. No stroke or stroke-like symptoms. No fever, chills or cough. He has no PND, orthopnea, lower extremit y edema. Rest of 12-point systems, otherwise unremarkable. PAST MEDICAL HISTORY: As above. The patient has history of coronary artery disease. He is monitore d by Dr. Polo, according to him negative stress test was in February this year. He also has a chroni c back pains and the back surgery was performed a while back. He has hypotestosteronism and also jose vated hemoglobin levels, which is undergoing periodic bloodletting yesterday he had about a pint of b lood taken out. SOCIAL HISTORY: Patient denies smoking, ETOH, or drug abuse. FAMILY HISTORY: Significant for pacemaker for mother, grandmother had heart disease, and uncles had heart disease. OBJECTIVE DATA: VITAL SIGNS: Currently, blood pressure is 117/61, heart rate 46, respirations 16, oxygen saturation 95% on room air. Patient is afebrile. GENERAL: He is alert and oriented man in no apparent distress. NECK: Supple. Jugular veins not distended. CHEST: Coarse without crackles. CARDIOVASCULAR: Heart sounds are regular to rate and rhythm. No murmur or gallop. ABDOMEN: Benign. Bowel sounds positive. EXTREMITIES: Lower extremities without edema, clubbing, or cyanosis. Pulses are adequate. DATABASE: EKG today reveals atrial flutter with 46 beats per minute. No signs of ST-T changes. Atr ial flutter likely typical-isthmus dependent morphology. Chest x-ray shows no acute process. LABORATORY DATA: INR 1.1, hemoglobin 14.9, white count 6.1, platelet count is 133, neutrophils 79.6% . Sodium 136, potassium 3.9, BUN is 18, creatinine 1.1, glucose 136. AST, ALT are 23 and 27. Tropo mariola I less than 0.01 and high as 0.014. ASSESSMENT AND PLAN: Mr. Irizarry is a 68-year-old man with history of coronary artery disease who is presenting after a syncopal spell preceded by a short period of chest pains. He has been found to tello ve atrial flutter, which is new onset, not documented before. His heart rates were markedly low. Hi s blood pressure was initially also lower in the 70s-90s, but dopamine and atropine demonstration has in fact made him hypertensive and corrected the heart rates. Since then he has been some fluid bolu ses, he is off dopamine hence markedly elevated blood pressures initially. If heart rate continues t o be in the 40s to 50s, improved some with activity. He has got an external pacer pads on. 1. Syncope is likely a combination of hypertension and bradycardia. I suspect some hypervagotonia m ight be playing a role. Reason for this is not entirely clear. 2. Newly found atrial flutter with slow ventricular response, likely a good candidate for ablation t herapy versus cardioversion after medical stabilization. 3. Coronary artery disease, prior bypass surgery and new onset chest pains management as per Dr. Col cardenas, negative troponin so far. 4. CHADS-VASc score of 3 with coronary vascular disease, age, and hypertension, currently on Lovenox . At this point, I would advocate basic studies rule out alternative explanations of hypertension. A 2 D echo possibly a chest CT might be a consideration. Eventually, the CRISTIAN guided cardioversion could be considered. Ablation will be also a strong consideration. We discussed with Dr. Castellon. Thank you again for allowing me to participate in the care of this patient.
--- NOTE | 2018-07-26 22:47 | CON ---
DATE OF CONSULTATION: 07/26/2018 HISTORY OF PRESENT ILLNESS: Mr. Irizarry is a 68-year-old male. Apparently, he had chest discomfort associated with diaphoresis. When his symptoms started, he was visiting his school and said he felt like that everything was washi ng out of his head and he thought he was going to pass out. He had diaphoretic and nauseated with th is. Apparently, he did fall out, although according to Dr. Escalona's records, but he did not tell me this. He had atrial flutter, has a background rhythm on telemetry, but he had a heart rate in the 30s to 40 s. He was initially started on dopamine, but he became hypertensive, so this was stopped and he was moved in to the Critical Care Unit. He says he is feeling better. PAST MEDICAL HISTORY: 1. Remarkable for coronary artery bypass grafting 13 years ago. 2. Lipid disorder. 3. Hypothyroidism. 4. History of erythrocytosis for which he has had phlebotomies. It is unclear whether or not he has ever had a sleep study. 5. History of back surgery. SOCIAL HISTORY: Nonsmoker, nondrinker. ALLERGIES: No drug allergies. FAMILY HISTORY: Negative for lung disease in early age. REVIEW OF SYSTEMS: A 10-point review of systems is otherwise negative. PHYSICAL EXAM: VITAL SIGNS: His heart rates in the 30s to 40. Blood pressure 120/62, respiratory rate is 19, oxime try is 97%. GENERAL: He is in no distress. He is lying flat in bed when I initially evaluated him. HEAD AND NECK: Unremarkable. LUNGS: Clear. HEART: Irregular rhythm and bradycardic as per the monitor. ABDOMEN: Soft and nontender. EXTREMITIES: Without clubbing, cyanosis, or edema. LABORATORY DATA: White count 6.1, hemoglobin 14.9, platelets 133,000. Sodium 136, potassium 3.9, chloride BUN 18, creatinine 1.1. IMPRESSION: 1. Atrial flutter. 2. Bradycardia. 3. Near syncope. 4. Chest pain with diaphoresis. 5. ?Ischemia. PLAN: Per EP and Cardiology at this point from a respiratory standpoint.
[2018-07-27 04:59] LABS: Anion Gap 12 mmol/L (10-20); BUN (Urea Nitrogen) 16 mg/dL (8.4-25.7); Calc. Creatinine Clearance 84 mL/min (70-130); Calcium 9.3 mg/dL (7.8-10.44); Carbon Dioxide 24 mmol/L (23-31); Chloride 106 mmol/L (98-107); Estimated GFR-MDRD 71; Glucose 93 mg/dL (80-115); Sodium 138 mmol/L (136-145)
[2018-07-27 05:37] LABS: Band 3 % (5-11); Eosinophils 3 % (0-10); Lymphocytes 23 % (21-51); MDiff Complete? YES; Mean Corpuscular HGB CONC 31.6 g/dL (32.0-36.0); Mean Corpuscular Hemoglobin 27.3 pg (27.0-31.0); Mean Corpuscular Volume 86.4 fL (78.0-98.0); Mean Platelet Volume 9.1 fL (7.4-10.4); Monocytes 9 % (0-10); Neutrophil 58 % (42-75); PLT Morphology Comment Appears Adequate; Platelet Count 145 thou/uL (130-400); RBC Distribution Width 15.9 % (11.5-14.5); Reactive Lymphocytes 4 % (0-10); Red Blood Cell (RBC) Count 5.47 mill/uL (4.70-6.10); White Blood Cell (WBC) Count 4.8 thou/uL (4.8-10.8)
[2018-07-27] MEDS: Enoxaparin Sodium 80 MG/0.8 ML SYRINGE SC SCH ×2 (09:47→21:25)
[2018-07-27] MEDS: Sodium Chloride 0.9% 1,000 ML IV SCH ×2 (09:47→12:38)
--- NOTE | 2018-07-27 10:17 | PDOC.PN ---
- Subjective Encounter Start Date: 07/27/18 Encounter Start Time: 10:15 Mr. Irizarry was seen today in follow-up of Atrial flutter with slow ventricular response. He does not have any complaints. He denies chest pain or shortness of breath. - Objective Resuscitation Status: Resuscitation Status FULL:Full Resuscitation MAR Reviewed: Yes Vital Signs & Weight: Vital Signs (12 hours) Temp Pulse Ox 07/27/18 08:00 98 07/27/18 07:00 97.6 F 07/27/18 03:00 98.2 F 07/26/18 23:00 98.3 F Weight Admit Weight 189 lb 9.561 oz Weight 189 lb 9.561 oz Most Recent Monitor Data Heart Rate from ECG 46 NIBP 124/64 NIBP BP-Mean 84 Respiration from ECG 7 SpO2 93 I&O: 07/26/18 07/27/18 07/28/18 06:59 06:59 06:59 Intake Total 2049 340 Output Total 2175 650 Balance -126 -310 Result Diagrams: 07/27/18 03:56 07/27/18 03:56 Phys Exam - Physical Examination HEENT: PERRLA, sclera anicteric Respiratory: no wheezing, no rales, no rhonchi, clear to auscultation bilateral Cardiovascular: no significant murmur, no rub no gallop, bradycardic Gastrointestinal: soft, non-tender, no distention, positive bowel sounds Musculoskeletal: no edema Dx/Plan (1) Atrial flutter Code(s): I48.92 - UNSPECIFIED ATRIAL FLUTTER Status: Acute (2) Coronary artery disease Code(s): I25.10 - ATHSCL HEART DISEASE OF [place] CORONARY ARTERY W/O ANG PCTRS Status: Chronic (3) Hypertension Code(s): I10 - ESSENTIAL (PRIMARY) HYPERTENSION Status: Chronic (4) Hypotestosteronism Status: Chronic (5) Pulmonary nodules Status: Acute - Plan * Atrial Flutter- heart rate remains in the 40's. He has transcutaneous pacer in place- Lovenox for anticoagulation * Echo has been ordered- possible cardioversion Sunday * HTN- blood pressure is stable * CAD- stable?- cardiac enzymes are negative- unknown if this was an ischemic event which provoked this current illness * Pulmonary Nodules- discussed with PCCM- ? significance
--- NOTE | 2018-07-27 12:02 | PDOC.CTH ---
Cardiology Progress Note - Subjective No new issues. he remains in a flutter with slow ventricular response. - Objective Vital Signs Temp Pulse Ox 07/27/18 08:00 98 07/27/18 07:00 97.6 F 07/27/18 03:00 98.2 F Admit Weight 189 lb 9.561 oz Weight 189 lb 9.561 oz 07/26/18 07/27/18 07/28/18 06:59 06:59 06:59 Intake Total 2049 340 Output Total 2175 650 Balance -126 -310 - Physical Examination General/Neuro: alert & oriented x3, NAD Neck: no JVD present Lungs: CTA, unlabored respirations Heart: other: (Irregular) Abdomen: NT/ND Extremities: other: (no edema) - Telemetry Telemetry Rhythm: NSR - Labs Result Diagrams: 07/27/18 03:56 07/27/18 03:56 Troponin/CKMB CK-MB (CK-2) 1.5 ng/mL (0-6.6) 07/26/18 09:02 Troponin I 0.014 ng/mL (< 0.028) 07/26/18 15:15 - Assessment/Plan 1. Aflutter, new onset with slow ventricular response 2. Bradycardia 3. Syncope, likely from bradycardia and aflutter. 4. CAD, stable. PLAN: - Remains in ICU for now. - Ablation and EP study sunday. - Continue full dose Lovenox. - May restart Thyroid and testosterone per home meds. - 40 minutes critical care time.
[2018-07-27] MEDS ORDERED: Levothyroxine Sodium 50 MCG TAB PO SCH (12:15)
[2018-07-27] MEDS ORDERED: TESTOSTERONE CYPIONATE 200 MG/ML IM SCH (12:30)
--- NOTE | 2018-07-28 00:50 | PRG ---
DATE OF SERVICE: 07/27/2018 SUBJECTIVE: Mr. Irizarry remains stable. We reviewed a CT of his chest. He has small lower lobe pulm onary nodules. It has smooth margins bilaterally. He also has some lymph nodes in his mediastinum, although I am not sure these are pathological lymph nodes. This certainly could be consistent with old granulomatous disease. I have planned to review the CT with one of the chest surgeons. He is not a candidate for workup of this at this point anyway. His atrial flutter and bradycardia have to be addressed first. He has no new complaints other than not liking the feeling of an external pacer firing. OBJECTIVE: LUNGS: Clear. HEART: Regular rhythm. ABDOMEN: Soft. LABORATORY DATA: White count is 4.8, hemoglobin 15, platelets 145,000. Sodium 138, potassium 4, chl oride 106, bicarb 24, BUN 16, creatinine 1.05. IMPRESSION: 1. Atrial flutter with bradycardia. Plan: Continue supportive care. Awaiting EP intervention. 2. CT abnormalities, which will be worked up at a later date once we are sure his cardiac status is stable.
[2018-07-28] MEDS: Levothyroxine Sodium 50 MCG TAB PO SCH (06:30)
[2018-07-28] MEDS: Enoxaparin Sodium 80 MG/0.8 ML SYRINGE SC SCH ×2 (09:15→21:38)
--- NOTE | 2018-07-28 10:02 | PDOC.PN ---
- Subjective Encounter Start Date: 07/28/18 Encounter Start Time: 10:02 CC: Bradychardia Sub: Pt denies dyspnea - Objective Resuscitation Status: Resuscitation Status FULL:Full Resuscitation Vital Signs & Weight: Vital Signs (12 hours) Temp Pulse Ox 07/28/18 08:00 97.5 F L 98 07/28/18 04:00 97.5 F L 07/28/18 00:00 97.8 F Weight Admit Weight 189 lb 9.561 oz Weight 191 lb 12.835 oz Most Recent Monitor Data Heart Rate from ECG 48 NIBP 170/85 NIBP BP-Mean 113 Respiration from ECG 17 SpO2 96 I&O: 07/27/18 07/28/18 07/29/18 06:59 06:59 06:59 Intake Total 2049 3307 240 Output Total 2179 3680 450 Balance -126 -493 -210 Result Diagrams: 07/28/18 10:39 07/28/18 10:39 Phys Exam - Physical Examination Constitutional: NAD HEENT: moist MMs Neck: no nodes Respiratory: no wheezing, no rales, no rhonchi Cardiovascular: no rub bradychardia, no murmur, no gallop Gastrointestinal: soft, non-tender, no distention Musculoskeletal: no edema Neurological: non-focal, normal sensation Psychiatric: normal affect Skin: no rash Dx/Plan - Plan (1) Atrial flutter Code(s): I48.92 - UNSPECIFIED ATRIAL FLUTTER Status: Acute (2) Coronary artery disease Code(s): I25.10 - ATHSCL HEART DISEASE OF [place] CORONARY ARTERY W/O ANG PCTRS Status: Chronic (3) Hypertension Code(s): I10 - ESSENTIAL (PRIMARY) HYPERTENSION Status: Chronic (4) Hypotestosteronism Status: Chronic (5) Pulmonary nodules Status: Acute - Plan * Atrial Flutter- heart rate remains in the 40's. He has transcutaneous pacer in place- Lovenox for anticoagulation * Echo has been ordered- possible cardioversion Sunday * HTN- blood pressure is stable * CAD- stable. * Pulmonary Nodules- management per pulmonary case d/w pt & RN
[2018-07-28 11:17] LABS: Anion Gap 12 mmol/L (10-20); BUN (Urea Nitrogen) 14 mg/dL (8.4-25.7); Calc. Creatinine Clearance 81 mL/min (70-130); Calcium 10.2 mg/dL (7.8-10.44); Carbon Dioxide 26 mmol/L (23-31); Chloride 103 mmol/L (98-107); Estimated GFR-MDRD 66; Glucose 95 mg/dL (80-115); Potassium 4.3 mmol/L (3.5-5.1); Sodium 137 mmol/L (136-145)
[2018-07-28 11:50] LABS: Band 7 % (5-11); Eosinophils 3 % (0-10); Hemoglobin 16.2 g/dL (14.0-18.0); Lymphocytes 25 % (21-51); MDiff Complete? YES; Mean Corpuscular HGB CONC 31.4 g/dL (32.0-36.0); Mean Corpuscular Hemoglobin 26.9 pg (27.0-31.0); Mean Corpuscular Volume 85.6 fL (78.0-98.0); Mean Platelet Volume 8.6 fL (7.4-10.4); Monocytes 12 % (0-10); Neutrophil 53 % (42-75); Platelet Count 167 thou/uL (130-400); RBC Distribution Width 15.9 % (11.5-14.5); Red Blood Cell (RBC) Count 6.02 mill/uL (4.70-6.10); White Blood Cell (WBC) Count 4.1 thou/uL (4.8-10.8)
[2018-07-28] MEDS: Sodium Chloride 0.9% 1,000 ML IV SCH (12:46)
[2018-07-28] MEDS: Artificial Tear Sol 15 ML BOT EA EYE PRN (16:21)
--- NOTE | 2018-07-28 17:36 | PDOC.CTH ---
Cardiology Progress Note - Subjective He feels well. No new issues. BP starting to go up. - Objective Vital Signs Temp Pulse Ox 07/28/18 12:00 98.3 F 07/28/18 08:00 97.5 F L 98 Admit Weight 189 lb 9.561 oz Weight 191 lb 12.835 oz 07/27/18 07/28/18 07/29/18 06:59 06:59 06:59 Intake Total 9331 7237 740 Output Total 2175 2000 800 Balance -126 -493 -60 - Physical Examination General/Neuro: alert & oriented x3, NAD Neck: no JVD present Lungs: unlabored respirations Heart: other: (Irregular) Abdomen: NT/ND Extremities: other: (no edema) - Telemetry Telemetry Rhythm: Aflutter HR 50's - Labs Result Diagrams: 07/28/18 10:39 07/28/18 10:39 Troponin/CKMB CK-MB (CK-2) 1.5 ng/mL (0-6.6) 07/26/18 09:02 Troponin I 0.014 ng/mL (< 0.028) 07/26/18 15:15 - Assessment/Plan 1. Aflutter, new onset with slow ventricular response 2. Bradycardia 3. Syncope, likely from bradycardia and aflutter. 4. CAD, stable. PLAN: - Remains in ICU for now. - Ablation and EP study tomorrow. - Continue full dose Lovenox.
--- NOTE | 2018-07-28 20:33 | PRG ---
DATE OF SERVICE: 07/28/2018 SUBJECTIVE: Mr. Irizarry still had atrial flutter, but did not require pacing last night. OBJECTIVE: LUNGS: Clear. HEART: Regular rhythm. ABDOMEN: Soft. IMPRESSION: 1. Atrial flutter with slow ventricular response. 2. Mediastinal lymph nodes and small pulmonary nodules, ? old granulomatous disease. PLAN: We have to completely address his atrial flutter and cardiac issues before we approach these i ssues on his CT.
[2018-07-28] MEDS: Rosuvastatin 5 MG TAB PO SCH (21:38)
[2018-07-29] MEDS: Sodium Chloride 0.9% 1,000 ML IV SCH (05:55)
[2018-07-29] MEDS: Levothyroxine Sodium 50 MCG TAB PO SCH (06:17)
[2018-07-29] MEDS: Aspirin 81 mg Enteric Coated Tablet PO SCH (08:41)
[2018-07-29] MEDS: Enoxaparin Sodium 80 MG/0.8 ML SYRINGE SC SCH ×2 (08:41→21:42)
[2018-07-29] MEDS ORDERED: Levothyroxine Sodium 50 MCG TAB PO SCH (09:00)
--- NOTE | 2018-07-29 10:28 | PRG ---
DATE OF SERVICE: 07/29/2018 Mr. Irizarry did well overnight. He did not require pacing overnight. PHYSICAL EXAMINATION: VITAL SIGNS: His oximetry is 94% on room air, heart rate 56, blood pressure 166/77. LUNGS: Clear. HEART: Regular rhythm. He is still in atrial flutter by monitor. ABDOMEN: Soft and nontender. EXTREMITIES: Without edema. He moves all extremities equally. IMPRESSION: 1. Atrial flutter. 2. Bradycardia. 3. Mediastinal lymph nodes and small pulmonary nodules. It may be old granulomatous disease. This will be worked up at a later date. 4. Status post outpatient phlebotomies for erythrocytosis. He said his hematocrit was 51 with his l ast phlebotomy. He has never been diagnosed with polycythemia rubra vera. He has been sleeping with his CPAP here an d we have not seen any episodes of severe desaturation. A urologist in [place] is the one that has been recommending the phlebotomies. He says based on whet her or not his face is red or not, this probably needs to be also readdressed as an outpatient. I wo uld withhold phlebotomy for a while and see where his CBC ends up and then refer him to one of the he matologists if he wants to be managed locally.
[2018-07-29] MEDS ORDERED: PROPOFOL 200 MG/20 ML VIAL ONE (12:16)
--- NOTE | 2018-07-29 14:11 | PDOC.PN ---
- Subjective Encounter Start Date: 07/29/18 Encounter Start Time: 13:25 -: old records requested/rev Pt seen and examined, chart reviewed in its entirety, this is my first visit with this patient Follow up for aflutter with bradycardia. going for EP study this afternoon. Hungry, no other complaints No F/C, no n/V/D/C, no CP or SOB, no acute overnight events, no new complaints All systems reviewed and neg for all systems except as stated above - Objective Resuscitation Status: Resuscitation Status FULL:Full Resuscitation MAR Reviewed: Yes Vital Signs & Weight: Vital Signs (12 hours) Temp Pulse Ox 07/29/18 12:00 98.5 F 07/29/18 07:14 94 L 07/29/18 04:00 97.6 F Weight Admit Weight 189 lb 9.561 oz Weight 185 lb Most Recent Monitor Data Heart Rate from ECG 67 NIBP 162/88 NIBP BP-Mean 112 Respiration from ECG 19 SpO2 96 I&O: 07/28/18 07/29/18 07/30/18 06:59 06:59 06:59 Intake Total 3307 3408 597 Output Total 3800 3210 200 Balance -493 198 397 Result Diagrams: 07/28/18 10:39 07/28/18 10:39 Radiology Reviewed by me: Yes EKG Reviewed by me: Yes Phys Exam - Physical Examination Constitutional: NAD HEENT: PERRLA, moist MMs, sclera anicteric, oral pharynx no lesions Neck: no nodes, no JVD, supple, full ROM Respiratory: no wheezing, no rales, no rhonchi, clear to auscultation bilateral Cardiovascular: RRR, no significant murmur, no rub Gastrointestinal: soft, non-tender, no distention, positive bowel sounds Musculoskeletal: no edema, pulses present Neurological: non-focal, normal sensation, moves all 4 limbs Lymphatic: no nodes Psychiatric: normal affect, A&O x 3 Skin: no rash, normal turgor, cap refill <2 seconds Dx/Plan (1) Symptomatic bradycardia Code(s): R00.1 - BRADYCARDIA, UNSPECIFIED Status: Acute (2) Atrial flutter Code(s): I48.92 - UNSPECIFIED ATRIAL FLUTTER Status: Acute Qualifiers: Atrial flutter type: atypical Qualified Code(s): I48.4 - Atypical atrial flutter (3) Pulmonary nodules Status: Chronic Comment: outpatient workup (4) Coronary artery disease Code(s): I25.10 - ATHSCL HEART DISEASE OF [place] CORONARY ARTERY W/O ANG PCTRS Status: Chronic Qualifiers: Coronary Disease-Associated Artery/Lesion type: [place] artery [place] vs. transplanted heart: [place] heart Associated angina: without angina Qualified Code(s): I25.10 - Atherosclerotic heart disease of [place] coronary artery without angina pectoris (5) Hypertension Code(s): I10 - ESSENTIAL (PRIMARY) HYPERTENSION Status: Chronic Qualifiers: Hypertension type: essential hypertension Qualified Code(s): I10 - Essential (primary) hypertension (6) Hypotestosteronism Status: Chronic (7) S/P lumbar fusion Code(s): Z98.1 - ARTHRODESIS STATUS Status: Chronic - Plan cont current plan of care, plan discussed w/ family * . EP lab later for EP study+/- ablation with Dr Garza
[2018-07-29] MEDS ORDERED: Lidocaine 1% (PF) 30 ML VIAL ONE (15:03)
[2018-07-29] MEDS ORDERED: PROPOFOL 40 ML ONE (15:34)
[2018-07-29] MEDS ORDERED: Heparin 10,000 UNITS/1 ML VIAL ONE (16:00)
[2018-07-29] MEDS ORDERED: Propofol 500 MG/50 ML VIAL ONE (16:01)
[2018-07-29] MEDS ORDERED: Fentanyl 100 MCG/2 ML VIAL ONE (16:10)
[2018-07-29] MEDS ORDERED: DOPamine 400 MG/D5W 250 ML 250 ML ONE (16:51)
[2018-07-29] MEDS ORDERED: Promethazine HCl 25 MG/ML VIAL IM PRN (17:41)
[2018-07-29] MEDS ORDERED: Ondansetron HCl/PF 4 MG/2 ML Vial IVP PRN (17:41)
[2018-07-29] MEDS ORDERED: Promethazine HCl 25 MG/ML VIAL SLOW IVP PRN (17:41)
[2018-07-29] MEDS: Artificial Tear Sol 15 ML BOT EA EYE PRN (21:43)
[2018-07-29] MEDS: Rosuvastatin 5 MG TAB PO SCH (21:43)
--- NOTE | 2018-07-29 23:41 | OP ---
DATE OF PROCEDURE: 07/29/2018 ELECTROPHYSIOLOGIC STUDY AND RADIOFREQUENCY ABLATION REFERRING PHYSICIAN: Hansel Castellon M.D. REASON FOR PROCEDURE: Mr. Irizarry is a 68-year-old man with prior history of hypertension, who presented with syncopal spell and newly found atrial flutter with slow ventricular response. He then underwent CRISTIAN today demonstrating no intracardiac clots and normal LV systolic function. He was seen here for an ablation procedure. DESCRIPTION OF PROCEDURE: The patient received propofol by Anesthesia specialist. After adequate sedation achieved, the right femoral venous area was prepped, draped and anesthetized using subcutaneous lidocaine and under ultrasound guidance two 8 Tamazight short sheath was introduced. Through these a decapolar catheter was advanced to the right ventricular His bundle, right atrium and CS position. Pacing mapping and recording was performed in each location. A ThermoCool SFST catheter was advanced to the right atrium. Burst overdrive pacing of the baseline flutter was performed at 220 milliseconds demonstrated post-pacing interval equal to the tachycardia cycle length suggestive of cavotricuspid isthmus dependent. A 3D map of the right atrium was obtained delineating His bundle and CS positions. The radiofrequency ablation of cavotricuspid isthmus has terminated the atrial flutter. Following that a proximal CS pacing was performed and further ablation lesions were placed to ascertain adequate transisthmus block prolonging the transisthmus time to 180 milliseconds. A unilateral block was demonstrated by having longest transisthmus time by the ablation line. Following that, basic EP study was also performed demonstrating V-A Wenckebach at 420 milliseconds. A-V Wenckebach 570 milliseconds, pacing cycle length after ablation 860 milliseconds sinus rhythm, NE 301, QRS 61, QT 340 milliseconds, AH 251, HV 56 milliseconds. AV node ERP 600/550 milliseconds. Burst atrial pacing did not induce any atrial arrhythmias. Dopamine was administered at this point and the patency of the transisthmus block was demonstrated again. The cardiac silhouette did not change of significance throughout the procedure and the patient tolerated the procedure well, no complications noted. CONCLUSION: 1. Typical, CTI dependent atrial flutter. 2. Succesful CTI ablation, eliminating atrial flutter. 3. Borderline sinus and AV maxime function PLAN: Routine postop care. Monitor for brqady arrhythmias, for now no indication for pacing. Consider 1 month of anticoagulation and routine followup. MTDD
[2018-07-30] MEDS: Sodium Chloride 0.9% 1,000 ML IV SCH (03:39)
[2018-07-30] MEDS ORDERED: cloNIDine 0.1 MG TAB PO PRN (04:49)
[2018-07-30] MEDS: Levothyroxine Sodium 50 MCG TAB PO SCH (05:08)
--- NOTE | 2018-07-30 07:13 | PDOC.CTH ---
Cardiology Progress Note - Objective Vital Signs Temp Pulse Resp BP Pulse Ox 07/30/18 05:09 171/111 H 07/30/18 00:00 98.3 F 07/29/18 20:00 98.1 F 68 16 98 Admit Weight 189 lb 9.561 oz Weight 2.97 oz 07/29/18 07/30/18 07/31/18 06:59 06:59 06:59 Intake Total 3408 2677 Output Total 3210 1400 0 Balance 198 1277 0 - Physical Examination General/Neuro: alert & oriented x3, NAD Neck: carotid US brisk, no JVD present Lungs: CTA, unlabored respirations Heart: PMI normal, RRR Abdomen: no HSM, NT/ND, soft Extremities: + femoral B - Labs Result Diagrams: 07/28/18 10:39 07/28/18 10:39 Troponin/CKMB CK-MB (CK-2) 1.5 ng/mL (0-6.6) 07/26/18 09:02 Troponin I 0.014 ng/mL (< 0.028) 07/26/18 15:15 - Assessment/Plan aflutter s/p flutter ablation HTN CAD CABG
[2018-07-30 08:47] VITALS: TEMP 98.5
[2018-07-30] MEDS ORDERED: cloNIDine 0.1 MG TAB PO SCH (09:00)
[2018-07-30] MEDS ORDERED: Anastrozole 1 MG TAB PO SCH (09:00)
[2018-07-30] MEDS: Aspirin 81 mg Enteric Coated Tablet PO SCH (09:06)
[2018-07-30 09:08] VITALS: BP 161/97
[2018-07-30] MEDS: Enoxaparin Sodium 80 MG/0.8 ML SYRINGE SC SCH (09:08)
--- NOTE | 2018-07-30 13:17 | ULT ---
ULTRASOUND DOPPLER DUPLEX ARTERIAL RIGHT GROIN: DATE: 07/30/18. HISTORY: A 68-year-old male status post cardiac catheterization with diagnosis of right groin hematoma. TECHNIQUE: [place]de scale, color flow, and spectral analysis, of the right common femoral arteries and bilateral com mon femoral veins. FINDINGS: Appropriate pulsatile arterial waveforms are demonstrated in the bilateral common femoral arteries. The right common femoral vein demonstrates normal, venous waveforms. No hematoma is visualized. No pseudoaneurysm. IMPRESSION: Negative. POS: EYAL
--- NOTE | 2018-07-30 15:42 | DIS ---
DATE OF ADMISSION: 07/26/2018 DATE OF DISCHARGE: 07/30/2018 PRIMARY CARE PHYSICIAN: Winnie Miller MD PRIMARY DEVELOPMENT SCIENTIST: Isaias Polo M.D. DISCHARGE DIAGNOSES: 1. Atrial flutter with bradycardic response. 2. Hypertension. 3. Coronary artery disease without angina. 4. Hypotestosteronism. 5. Pulmonary nodules. 6. Symptomatic bradycardia. 7. History of chronic low back pain status post lumbar fusion. CONSULTATIONS: 1. Cardiology, Dr. Hansel Castellon, followed by Dr. Isaias Polo. 2. Electrophysiology, Dr. Anders Garza. 3. Pulmonary Critical Care, Dr. Carlos Elliott. PROCEDURES: 1. Echocardiogram on 07/27/2018 that showed an EF of 50%-55%, atrial flutter, moderate dilated left atrium, mildly enlarged right atrium, mitral annular calcification, mild mitral regurgitation, aortic sclerosis with normal opening and mild TR. 2. Electrophysiology study with ablation on 07/29/[address] Anders Garza. 3. Lower extremity ultrasound on 07/30/2018 that was negative for hematoma or pseudoaneurysm. HISTORY AND PHYSICAL: Mr. Irizarry is a 68-year-old male who presented to the emergency department for evaluation on 07/26/2018 with complaints of feeling weak and passing out. He was found to have a br adycardic rate in the 30s to 40s, but in atrial flutter rhythm. He was started on dobutamine c ardiologist and heart rate actually improved. The blood pressure went really high and he had to be t aken off the dobutamine. He was transferred to the ICU for further treatment. Cardiology and EP wer e consulted. HOSPITAL COURSE: The patient was seen and examined by Dr. Reece Escalona and admitted to the ICU. EP a nd Cardiology were consulted. The patient seen by Dr. Castellon, who agreed with electrophysiology cons ultation, atropine, and the possibility of needing a CRISTIAN cardioversion next few days. The patient wa s seen by Dr. Gazra, who recommended EP study on Sunday. The patient was continued to be monitored in the ICU. Over the weekend, 07/27/2018 to 07/28/2018, the patient remained stable. Echocardiogram was done janet t showed with the above findings. On 07/29/2018, the patient was taken to the EP lab and the atrial flutter was ablated. He had a normal ventricular response at that time. Overnight 07/29/2018 to 11/2017, the patient did well, but did have a little bit of swelling in the groin from the insertion site for the electrophysiology study. Ultrasound showed no pseudoaneurysm or pulsatile flow or signi ficant hematoma. The patient was stable for discharge with outpatient followup. PHYSICAL EXAMINATION: The patient was seen and examined on the day of discharge. Discharge plan and disposition was discussed with the patient's face to face at the bedside. DISCHARGE MEDICATIONS: New medications, Eliquis 5 mg p.o. b.i.d. MEDICINE TO CONTINUE: 1. Anastrozole 1 mg p.o. every Sunday and Sunday. 2. Aspirin 81 mg a day. 3. Carvedilol 6.25 mg p.o. b.i.d. 4. Clonidine 0.1 mg p.o. b.i.d. 5. Hydrocodone/APAP as needed. 6. Levothyroxine 50 mcg p.o. q.a.m. 7. Losartan 100 mg p.o. q.p.m. 8. Crestor 5 mg p.o. q.p.m. 9. Sertraline 50 mg p.o. at bedtime. 10. Testosterone cypionate 200 mg IM every 7 days. FOLLOWUP APPOINTMENTS: 1. Primary care physician, Dr. Miller, within 7 days. 2. EP in [address] Garza. 3. Cardiology with Dr. Polo in 2-3 weeks. DISCHARGE ACTIVITY: Per cardiopulmonary limits. DISCHARGE DIET: Heart healthy diet recommended. DISCHARGE CONDITION: Stable. DISPOSITION: Discharged home via private vehicle.
[2018-07-30] MEDS ORDERED: Losartan 25 MG TAB PO SCH (21:00)
--- NOTE | 2018-07-30 23:08 | ECHO ---
REASON FOR PROCEDURE: Patient is a 68-year-old man with prior history of no major cardiac issues who presented after a sync opal episode with slow atrial flutter. Here for CRISTIAN guided ablation procedure. PROCEDURE: The patient received propofol by Anesthesia specialist. After adequate level of sedation achieved, a standard transesophageal echocardiogram probe was passed into the esophagus without difficulty. Pat ient tolerated procedure well, no complications noted. RESULTS: The left atrium is normal in size, left appendage well visualized contains no clots. Two left-sided pulmonary veins and three right-sided pulmonary veins were visualized. Interatrial septum is free of defect. Mitral valve with mild regurgitation only. Tricuspid valve is without significant regurgitation. Aortic valve has three leaflets, no regurgitation or stenosis is noted. The pulmonary valve nonregurgitant. The left ventricular function is preserved. LVEF about 65% noted. Mild LVH is seen. The pericardial space without effusion. The right-sided chambers nondilated. The visualized portion the ascending and descending aorta without aneurysm, dissection or significant atheroma. CONCLUSION: 1. No intracardiac clots. 2. Normal left ventricular systolic function. 3. Mild mitral regurgitation. No other significant valvular heart disease seen. PLAN: Proceed with ablation.
== END 2018-07-30 11:35 | disposition home or self-care (01) | DRG 274 ==
LOC: ERS 08:32 → CCU 11:08
PROVIDERS: ADMIT Internal Medicine; ATTEND Internal Medicine
PROC: 02583ZZ Destruction of Conduction Mechanism, Percutaneous Approach (ICD-10-PCS; principal; 2018-07-29)
DX: I48.92 Unspecified atrial flutter (principal); R00.1 Bradycardia, unspecified; I95.9 Hypotension, unspecified; R55 Syncope and collapse; R91.1 Solitary pulmonary nodule; R59.1 Generalized enlarged lymph nodes; I10 Essential (primary) hypertension; I25.10 Atherosclerotic heart disease of native coronary artery without angina pectoris; Z95.1 Presence of aortocoronary bypass graft; E78.5 Hyperlipidemia, unspecified; E29.1 Testicular hypofunction; E03.9 Hypothyroidism, unspecified; Z79.899 Other long term (current) drug therapy; G89.29 Other chronic pain; M54.9 Dorsalgia, unspecified; Z79.82 Long term (current) use of aspirin
CPT/HCPCS: 36415; 71045; 71275; 76942; 80048; 80053; 82553; 83690; 83735; 84443; 84484; 85025; 85610; 85730; 93005; 93010; 93306; 93312; 93613; 93623; 93653; 93926; 94760; 96365; 96375; C1730; C1769; J0461; J1250; J1265; J1644; J1650; J2001; J2704; J3010

== ENCOUNTER 2018-08-15 09:47 | Outpatient (CLI) | payer MEDICARE ==
--- NOTE | 2018-08-15 12:21 | PET ---
PET CT FROM SKULL TO MID THIGH: INDICATION: Lung nodule suspicious for metastatic disease. TECHNIQUE: PET CT images were obtained from the skull base through the mid thighs following administration of 10 .2 mCi F18-FDG IV. The CT images were obtained for attenuation correction purposes only. COMPARISON: Comparison made with prior CTA of thorax dated 07/26/18. FINDINGS: Biodistribution: The biodistribution appears acceptable. Head/Neck: No hypermetabolic mass is demonstrated. There is a mildly hypermetabolic 9.0 mm right subclavian lymp h node with a peak SUV activity of 2.56 and mean activity of 2.54. No additional hypermetabolic lymph adenopathy is seen within the neck or axillary region. Chest: There are numerous hypermetabolic mediastinal and hilar lymph nodes. One of the largest hypermetabolic lymph nodes seen within the right paratracheal region measures 1.6 cm with a peak SUV uptake of 6.12 and mean uptake of 5.86. There is a hypermetabolic subcarinal lymph node measuring 1.5 cm with peak SUV uptake of 6.98 and a m blossom uptake of 6.23. There is a hypermetabolic 2.0 cm left infrahilar lymph node with a peak uptake of 9.92 and mean uptak e of 9.68. There are numerous scattered pulmonary nodules, a majority of which are subcentimeter in size. The la rgest pulmonary nodule measures 9.0 mm within the right upper lobe on image [address] images with a pe ak SUV uptake of 1.44 and a mean uptake of 1.26. Many of the smaller pulmonary nodules are likely bel ow PET resolution threshold for evaluation. Abdomen/Pelvis: There are numerous hypermetabolic retroperitoneal lymph nodes. There are enlarged grouping of portoca edward and periportal lymph nodes. One of the largest is seen on image [address] images measuring 1. 6 cm. The peak SUV uptake associated with this lymph node is 5.85 and mean uptake is 4.78. There are hypermetabolic iliac chain lymph nodes bilaterally. One of the largest is seen along the le ft external iliac measuring 1.0 cm with a peak SUV uptake of 7.9 and a mean uptake of 7.71. There are scattered diverticula involving the colon. No hypermetabolic ascites or overt soft tissue mass is de monstrated. There are tiny hypodensities within the liver with no associated hypermetabolic uptake. There is postsurgical change involving the lower lumbar spine. Skin/Osseous Structures: No hypermetabolic skin or osseous lesion is evident. IMPRESSION: Abnormal PET CT: 1. Numerous hypermetabolic lymph nodes seen involving the right subclavian region of the neck, media stinum, hilar regions, retroperitoneum, and along both iliac chains. Overall, the findings are suspic ious for an entity such as lymphoma. The large left external iliac chain lymph node would be amenable to CT guided percutaneous FNA or core biopsy. 2. Numerous pulmonary nodules throughout both lungs can be related to lymphoma or metastatic diseas e. Many of these pulmonary nodules are below PET resolution threshold. The largest nodule within the right upper lobe measures 9.0 mm and it demonstrates some mild increased metabolic uptake. POS: [facility]
== END 2018-08-15 09:48 | disposition home or self-care (01) ==
LOC: PET 09:47
PROVIDERS: ATTEND Internal Medicine Critical Care Medicine
DX: R91.1 Solitary pulmonary nodule (principal); R91.8 Other nonspecific abnormal finding of lung field
CPT/HCPCS: 78815; A9552

== ENCOUNTER 2018-08-23 10:00 | Day surgery (SDC) | payer MEDICARE ==
[2018-08-22 15:52] VITALS: BMI 28.8
[2018-08-23] MEDS ORDERED: CEFAZOLIN/Water 2 GM/20 ML SYRINGE ONE (10:29)
[2018-08-23 10:58] LABS: Hemoglobin 15.1 g/dL (14.0-18.0); Mean Corpuscular HGB CONC 30.5 g/dL (32.0-36.0); Mean Corpuscular Hemoglobin 25.8 pg (27.0-31.0); Mean Corpuscular Volume 84.5 fL (78.0-98.0); Mean Platelet Volume 8.8 fL (7.4-10.4); Platelet Count 168 thou/uL (130-400); RBC Distribution Width 16.7 % (11.5-14.5); Red Blood Cell (RBC) Count 5.85 mill/uL (4.70-6.10); White Blood Cell (WBC) Count 3.8 thou/uL (4.8-10.8)
[2018-08-23] MEDS ORDERED: Midazolam HCl 2 mg/2 ml Vial ONE (11:19)
[2018-08-23] MEDS ORDERED: Fentanyl 100 MCG/2 ML VIAL ONE (11:19)
[2018-08-23 11:22] LABS: Anion Gap 12 mmol/L (10-20); BUN (Urea Nitrogen) 18 mg/dL (8.4-25.7); Calc. Creatinine Clearance 86 mL/min (70-130); Calcium 9.9 mg/dL (7.8-10.44); Carbon Dioxide 27 mmol/L (23-31); Chloride 104 mmol/L (98-107); Estimated GFR-MDRD 72; Glucose 105 mg/dL (80-115); Potassium 4.1 mmol/L (3.5-5.1); Sodium 139 mmol/L (136-145)
[2018-08-23] MEDS ORDERED: Bupivacaine HCl 0.5%/Epinephrine 1:200,000/PF 30 ml Vial ONE (11:58)
--- NOTE | 2018-08-23 13:21 | OP ---
DATE OF PROCEDURE: 08/23/2018 PREOPERATIVE DIAGNOSES: 1. Mediastinal adenopathy. 2. 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 PROCEDURE: 1. Cervical mediastinoscopy with biopsy of level 4R lymph node. 2. Xiphoid resection and primary closure. SURGEON: Mark Covington M.D. ANESTHESIA: General endotracheal. ESTIMATED BLOOD LOSS: Minimal. PROCEDURE IN DETAIL: After consent was obtained, the patient was brought to the operating room and p laced in the supine position on the operating room table. Appropriate anesthetic monitor was placed and general endotracheal anesthesia induced. Neck and chest were prepped and draped in usual sterile fashion. Skin incision was made two fingerbreadths above the sternal notch. Dissection through the platysma and between the strap muscles obtained with electrocautery. Anterior tracheal fascia was e ntered and blunt dissection used to enter the mediastinum. Mediastinoscope was inserted and prominen t level 4R lymph nodes were easily isolated. A number of biopsies were taken and sent to pathology f or examination. Hemostasis was ensured. Wound was closed in layers and Dermabond applied to the ski n. Incision was made over the xiphoid prominence. Xiphoid was dissected free from the surrounding tissu es. This was an abnormal aberrant calcification that was resected. The fascia was reapproximated wi th 0 Vicryl suture. Wounds were irrigated, closed in layers and Dermabond applied to the skin. Both incisions were injected with 0.5% Marcaine with epinephrine for local anesthetic. The patient was a wakened, extubated, and transferred to recovery room in stable condition. He will be discharged home later today.
[2018-08-23] MEDS ORDERED: cloNIDine 0.1 MG TAB ONE (13:22)
[2018-08-23] MEDS ORDERED: HYDROcodone/Acetaminophen 5/325 mg Tablet ONE (14:22)
== END 2018-08-23 14:40 | disposition home or self-care (01) ==
LOC: SDC 10:00
PROVIDERS: ATTEND Thoracic Surgery (Cardiothoracic Vascular Surgery)
PROC: 07B74ZX Excision of Thorax Lymphatic, Percutaneous Endoscopic Approach, Diagnostic (ICD-10-PCS; principal; 2018-08-23)
PROC: 0PB00ZZ Excision of Sternum, Open Approach (ICD-10-PCS; 2018-08-23)
DX: I88.8 Other nonspecific lymphadenitis (principal); M89.8X8 Other specified disorders of bone, other site; E03.9 Hypothyroidism, unspecified; I48.92 Unspecified atrial flutter; D75.1 Secondary polycythemia; E78.2 Mixed hyperlipidemia; I25.10 Atherosclerotic heart disease of native coronary artery without angina pectoris; Z79.82 Long term (current) use of aspirin; Z79.811 Long term (current) use of aromatase inhibitors; Z79.899 Other long term (current) drug therapy; Z95.1 Presence of aortocoronary bypass graft; Z91.048 Other nonmedicinal substance allergy status
CPT/HCPCS: 80048; 85027; 87070; 87116; 87205; 87206; 88184; 88305; 88312; 88331; 88334; J0670; J1642; J2250; J3010

== ENCOUNTER 2018-08-25 11:21 | Emergency (ER) | payer MEDICARE | END 2018-08-25 11:54 | disposition home or self-care (01) | LOC: SCSER 11:21 | DX: E89.820 Postprocedural hematoma of an endocrine system organ or structure following an endocrine system procedure (principal); I10 Essential (primary) hypertension; E78.5 Hyperlipidemia, unspecified; Z79.899 Other long term (current) drug therapy; Z79.82 Long term (current) use of aspirin; Z79.891 Long term (current) use of opiate analgesic | CPT/HCPCS: 99282 ==

== ENCOUNTER 2018-09-16 19:30 | Outpatient (CLI) | payer MEDICARE | END 2018-09-16 19:31 | disposition home or self-care (01) | LOC: SLEEPLAB 19:30 | PROVIDERS: ATTEND Family Medicine | DX: G47.33 Obstructive sleep apnea (adult) (pediatric) (principal); I10 Essential (primary) hypertension; G47.00 Insomnia, unspecified; G47.10 Hypersomnia, unspecified; I25.10 Atherosclerotic heart disease of native coronary artery without angina pectoris; R06.83 Snoring; Z68.28 Body mass index [BMI] 28.0-28.9, adult | CPT/HCPCS: 95810 ==

== ENCOUNTER 2018-10-16 13:23 | Outpatient (CLI) | payer MEDICARE ==
--- NOTE | 2018-10-16 14:01 | RAD ---
EXAM: CHEST TWO VIEWS: History: 68-year-old male with history of dyspnea. Comparison: 07-26-18 FINDINGS: Post underlying sternotomy. Heart size is within normal limits. The lungs are clear. No confluent pne umonia, overt edema, or pleural effusion. IMPRESSION: No acute intrathoracic disease. POS: [facility]
== END 2018-10-16 13:24 | disposition home or self-care (01) ==
LOC: RAD 13:23
PROVIDERS: ATTEND Internal Medicine Critical Care Medicine
DX: R06.00 Dyspnea, unspecified (principal); E03.9 Hypothyroidism, unspecified; I10 Essential (primary) hypertension; I25.10 Atherosclerotic heart disease of native coronary artery without angina pectoris; E78.5 Hyperlipidemia, unspecified; E55.9 Vitamin D deficiency, unspecified; E78.6 Lipoprotein deficiency; R79.89 Other specified abnormal findings of blood chemistry
CPT/HCPCS: 36415; 71046; 80053; 80061; 82306; 84270; 84403; 84439; 84443; 84481

== ENCOUNTER 2019-02-24 09:20 | Outpatient (CLI) | payer MEDICARE ==
--- NOTE | 2019-02-24 11:45 | CT ---
NONCONTRAST ENHANCED CT LUMBAR SPINE: HISTORY: Lumbar radiculopathy, back pain. Axial images are obtained with coronal and sagittal reconstructions. Comparison made to previous exam from 01/31/2018. FINDINGS: T10-11: Mild facet hypertrophy is seen. No significant evidence of central or neural foraminal narrow ing seen. T11-12: Minimal facet hypertrophy seen. The central canal and neural foramen are patent. T12-L1: Mild facet hypertrophy is seen. Central canal and neural foramen are patent. L1-2: There is some disc space height loss. There is bilateral facet hypertrophy. Mild central and la teral recess stenosis seen. L2-3: There is disc desiccation seen. There are vacuum disc changes seen. There is bilateral facet an d ligamentum flavum hypertrophy. There is a broad-based disc bulge resulting in moderate central and lateral recess stenosis especially on the left. This is unchanged since the previous exam. There does appear to be some soft tissue extension into the left L2-3 neural foramen some of this may represent areas of scarring and a broad-based disc protrusion. This appears to abut the left exiting L2 nerve root. L3-4: There is fusion of the L3-4 vertebral level with pedicle screws. The patient has had previous p osterior L3 and L4 laminectomies. The surgical screws are in good position. Some dorsal L3-4 central canal epidural scarring seen. L4-5: Vacuum disc changes seen. Bilateral facet hypertrophy seen. L4 and L5 pedicle screws in good po sition without evidence of loosening. Laminectomy changes at L5. Bilateral L4-5 facet hypertrophy and degenerative changes. Surrounding epidural scarring is present at the L4-5 level. Some of the sca r appears to extend into the right L4-5 neural foramen. These findings are not significantly changed since previous comparison CT. L5-S1: Vacuum disc changes seen. There is a broad-based central disc protrusion mildly compressing th e anterior thecal sac. The protrusion also extends into the right and left L5-S1 neural foramen. IMPRESSION: L4, L5 and S1 posterior fusion with extensive laminectomy changes. Postsurgical scar is present. No s ignificant interval change is seen since the previous comparison CT. Transcribed Date/Time: 02/24/2019 11:51 AM
== END 2019-02-24 09:21 | disposition home or self-care (01) ==
LOC: SCSCT 09:20
PROVIDERS: ATTEND Physician Assistant Medical
DX: M54.16 Radiculopathy, lumbar region (principal); L90.5 Scar conditions and fibrosis of skin; Z98.1 Arthrodesis status
CPT/HCPCS: 72131

== ENCOUNTER 2019-04-02 09:19 | Outpatient (CLI) | payer MEDICARE ==
--- NOTE | 2019-04-02 10:30 | RAD ---
4 VIEWS LUMBOSACRAL SPINE: Date: 04/02/19 COMPARISON: None. HISTORY: Low back pain. Spinal stenosis. FINDINGS: Four views of lumbosacral spine show the patient to be status post posterior fusion of L3 and L4 with bilateral pedicle screws with spanning rods. There are portions of pedicle screws still seen in the L5 vertebral body/pedicles. There is scoliotic curvature of the spine. Moderate degenerative changes are seen in the lumbar spine. Laminectomies have been performed from L3 through L5. The intervertebra l discs are narrowed and moderate osteophytes are seen throughout the lumbar spine. Alignment is unch anged with flexion and extension. IMPRESSION: Postsurgical and degenerative changes in the lumbar spine with unchanged alignment with bending. POS: [facility]
== END 2019-04-02 09:20 | disposition home or self-care (01) ==
LOC: RAD 09:19
PROVIDERS: ATTEND Nurse Practitioner Family
DX: M48.062 Spinal stenosis, lumbar region with neurogenic claudication (principal); M47.816 Spondylosis without myelopathy or radiculopathy, lumbar region; Z98.890 Other specified postprocedural states
CPT/HCPCS: 72110

== ENCOUNTER 2019-05-19 08:18 | Day surgery (SDC) | payer MEDICARE ==
[2019-05-15 09:26] VITALS: BMI 30.4
--- NOTE | 2019-05-19 07:50 | HP ---
HISTORY OF PRESENT ILLNESS: Mr. Irizarry is a pleasant 69-year-old man known to us for several prior lumbar decompression presents now for what appears to be bilateral L3 radiculopathy with identified stenosis on lumbar MRI at [place] at L2-L3. He was treated this very well with injections, but has reached the point where he has decided to be treated with surgery instead. PAST MEDICAL HISTORY: Significant for hypotestosteronism, hypertension, hyperlipidemia, hypothyroidism, and seasonal allergies. CURRENT MEDICATIONS: 1. . 2. Losartan. 3. Carvedilol. 4. Lansoprazole. 5. Levothyroxine. 6. Testosterone. 7. Clonidine. 8. Fluticasone. ALLERGIES: NO KNOWN DRUG ALLERGIES. PHYSICAL EXAMINATION: GENERAL: The patient is alert and oriented x3. NEUROLOGIC: Gait is mildly antalgic. Lower extremity motor exam is normal. ASSESSMENT: Lumbar radiculopathy. PLAN: Dr. Rainey met with the patient, reviewed imaging, advocated for an L2-L3 decompression. He explained to the patient the risks, benefits, and alternatives to the procedure. The patient expressed understanding and elected to move forward with surgery as discussed. I do believe the patient is mentally competent and capable of making medical decisions for himself. We will move forward with surgery as planned. Job ID: [id number]
[2019-05-19] MEDS ORDERED: Bupivacaine HCl 0.5%/Epinephrine 1:200,000/PF 30 ml Vial ONE (10:07)
[2019-05-19] MEDS ORDERED: Thrombin 5000 UNITS/5 ML VIAL ONE (10:07)
[2019-05-19] MEDS ORDERED: Fentanyl 100 MCG/2 ML VIAL ONE ×2 (10:23→11:39)
[2019-05-19] MEDS ORDERED: Tamsulosin HCl 0.4 MG CAP ONE (12:22)
[2019-05-19] MEDS ORDERED: ceFAZolin Sodium (SDC) 2 GM/100 ML BAG ONE (13:17)
--- NOTE | 2019-05-20 10:55 | OP ---
DATE OF PROCEDURE: 05/19/2019 CENTRAL OFFICE MECHANIC: Valeriano Betancourt PA-C INDICATION: Pain. DIAGNOSIS: Lumbar stenosis and lumbar radiculopathy. PROCEDURES PERFORMED: Reoperation L2-L3 lumbar decompression. ANESTHESIA: General. DESCRIPTION OF PROCEDURE: The patient was brought into the operating room and placed under general anesthesia. He was flipped from the supine to prone position on the operating room table. A linear incision was planned over L2-L3, which incorporated an incision from a prior operation. After prepping and draping and after an appropriate preoperative pause, the incision was created. The soft tissues were swept away from midline. A self-retaining retractor was placed in the wound for optimal exposure. After confirming the appropriate level with C-arm fluoroscopy, high-speed cutting drill bit as well as 2, 3, and 4 mm Kerrison's were used to perform a laminectomy at L2-L3. After decompressing the segment, the wound was irrigated. Hemostasis was maintained throughout. The wound was then closed in anatomic layers and a pressure dressing was applied. There were no known procedural complications. Job ID: [id number]
== END 2019-05-19 13:55 | disposition home or self-care (01) ==
LOC: SDC 08:18
PROVIDERS: ATTEND Neurological Surgery
PROC: 01NB0ZZ Release Lumbar Nerve, Open Approach (ICD-10-PCS; principal; 2019-05-19)
DX: M48.062 Spinal stenosis, lumbar region with neurogenic claudication (principal); M54.16 Radiculopathy, lumbar region; I10 Essential (primary) hypertension; E78.5 Hyperlipidemia, unspecified; E03.9 Hypothyroidism, unspecified; Z79.82 Long term (current) use of aspirin; Z79.899 Other long term (current) drug therapy; Z91.048 Other nonmedicinal substance allergy status; Z98.890 Other specified postprocedural states
CPT/HCPCS: 76000; J0670; J0690; J3010

== ENCOUNTER 2019-09-12 13:24 | Outpatient (CLI) | payer MEDICARE ==
--- NOTE | 2019-09-12 13:48 | RAD ---
THREE VIEWS LUMBAR SPINE: HISTORY: Lumbar radiculopathy. Lumbar fusion. COMPARISON: 05/16/2018, 04/02/2019. FINDINGS: Redemonstration of bilateral transpedicular screws at L3 and L4 with associated vertical stabilizatio n rods. Residual screws are noted in the left and right pedicle at L5. In the neutral position, there is no significant spondylolisthesis. Stable degenerative disc disease. Upon extension and flexion, there is no abnormal translational motion line lumbar spine vertebral body heights are maintained. No fracture. There is atherosclerosis. IMPRESSION: No significant spondylolisthesis or spondylolysis. Stable fusion changes. Transcribed Date/Time: 09/12/2019 1:51 PM
== END 2019-09-12 13:25 | disposition home or self-care (01) ==
LOC: RAD 13:24
PROVIDERS: ATTEND Specialist
DX: M54.16 Radiculopathy, lumbar region (principal); Z98.1 Arthrodesis status
CPT/HCPCS: 72100

== ENCOUNTER 2020-04-01 13:05 | Outpatient (CLI) | payer MEDICARE ==
--- NOTE | 2020-04-01 14:06 | RAD ---
RIGHT HIP 2 VIEWS: Date: 04/01/2020 HISTORY: Right hip pain. FINDINGS/IMPRESSION: There are mild degenerative changes. No fracture, dislocation, or bony destruction identified. POS: [facility]
--- NOTE | 2020-04-01 14:07 | RAD ---
LEFT HIP 2 VIEWS: Date: 04/01/2020 HISTORY: Left hip pain. FINDINGS/IMPRESSION: Mild degenerative changes are present. No fracture, dislocation, or bony destruction is seen. POS: [facility]
--- NOTE | 2020-04-01 16:09 | MRI ---
MR CERVICAL SPINE WITHOUT CONTRAST: 04/01/20 INDICATION: History of neck pain and right sided hand numbness for many months. COMPARISON: None. TECHNIQUE: Multiplanar and multisequence MR images were obtained in the cervical spine without IV contrast. FINDINGS: The visualized aspects of the posterior fossa appear within normal limits. The bone marrow signal int ensity appears within normal limits. Prevertebral and paravertebral soft tissues appear within normal limits. At C2-3, there is moderate bilateral facet joint degenerative change and broad based bulge without ap preciable central canal or neural foraminal narrowing. At C3-4, there is a mild broad based bulge with uncovertebral hypertrophy, facet joint degenerative c hange inducing mild left neural foraminal narrowing. At C4-5, there is a broad based bulge with uncovertebral hypertrophy and facet joint degenerative roseanne nge inducing moderate bilateral neural foraminal narrowing at C4-5. At C5-6, there is a broad based bulge with uncovertebral hypertrophy and facet joint degenerative roseanne nge inducing moderate to severe right neural foraminal narrowing. There is mild central canal narrowi ng without cord compression. At C6-7, there is a broad based with uncovertebral hypertrophy inducing moderate to severe bilateral neural foraminal narrowing. At C7-T1, there is no appreciable central canal or neural foraminal narrowing. IMPRESSION: 1. Moderate to severe bilateral neural foraminal narrowing at C6-7. 2. Moderate to severe right neural foraminal narrowing at C5-6. 3. Moderate bilateral neural foraminal narrowing at C4-5. POS: [facility]
--- NOTE | 2020-04-01 16:26 | MRI ---
MR OF THE LUMBAR SPINE WITH AND WITHOUT CONTRAST: 04/01/20 INDICATION: History of prior back surgery with low back pain, bilateral hip pain and right hip pain. The patient is having also referral of pain into the buttocks and left hip with tingling sensation ongoing for a month. CONTRAST: 20 mL of Multihance. COMPARISON: CT lumbar spine without contrast from [facility] from 02/24/19. FINDINGS: The postprocedural change consistent with a posterolateral interbody fusion at L3-4 is similar appear ing. Retained fracture pedicle screws at L5 are similar appearing. Laminectomies from L3 through L5 i s similar appearing. There is an incidental 1.9 cm right peripelvic cyst. No lymphadenopathy is evident. No free fluid is noted. There is slightly more pronounced Modic end plate degenerative change seen at the left at L2-3. At L5-S1, there is an asymmetric to the right broad based disc bulge with facet hypertrophy and loss of disc space height inducing mild left and moderate to severe right neural foraminal narrowing. At L4-5, there is broad based disc osteophyte complex with facet hypertrophy and loss of disc height inducing moderate right and mild left neural foraminal narrowing. At L3-4, there is a residual osteophyte complex with facet hypertrophy inducing moderate bilateral ne ural foraminal narrowing, left greater than right. At L2-3, there is a retrolisthesis of L2 on 3 with a broad based disc osteophyte complex and facet de generative changes inducing mild central canal narrowing with mild right and severe left neural ivania inal narrowing. At L1-2, there is a broad based disc bulge with facet hypertrophy inducing mild bilateral neural fora prabhakar narrowing. At T12-L1, there is no appreciable central or neural foraminal narrowing. Postcontrast images demonstrate no abnormal enhancement. IMPRESSION: 1. Stable postoperative lumbar spine with adjacent segment degeneration seen at L2-3 with more p ronounced Modic end plate changes at L2-3. 2. Severe left neural foraminal narrowing at L2-3 with mild central canal narrowing. 3. Moderate to severe right neural foraminal narrowing at L5-S1. 4. Moderate right neural foraminal narrowing at L4-5. 5. Moderate bilateral neural foraminal narrowing at L3-4. POS: [facility]
== END 2020-04-01 13:06 | disposition home or self-care (01) ==
LOC: SCSMRI 13:05
PROVIDERS: ATTEND Neurological Surgery
DX: M54.12 Radiculopathy, cervical region (principal); M47.26 Other spondylosis with radiculopathy, lumbar region; M25.551 Pain in right hip; M16.11 Unilateral primary osteoarthritis, right hip; M48.02 Spinal stenosis, cervical region; M48.061 Spinal stenosis, lumbar region without neurogenic claudication; M48.07 Spinal stenosis, lumbosacral region; Z98.890 Other specified postprocedural states
CPT/HCPCS: 72141; 72158; 82565

== ENCOUNTER 2020-04-19 10:43 | Outpatient (CLI) | payer MEDICARE ==
--- NOTE | 2020-04-19 15:57 | CT ---
CT OF THE LUMBAR SPINE: DATE: 04/19/2020. COMPARISON: 02/24/2019. HISTORY: Back pain, prior back surgeries. TECHNIQUE: Axial CT imaging at 2 mm intervals through the lumbar spine without contrast. Coronal and sagittal r eformatted imaging obtained. FINDINGS: Scattered atherosclerotic calcifications are noted involving the imaged abdominal aorta and the arter ial structures of the pelvis. The imaged retroperitoneal structures demonstrate no acute findings. Mildly prominent but stable nodes are seen in the zahra hepatis. Evaluation for central canal and/or neural foraminal stenosis is limited on routine CT exam. There i s no significant anterolisthesis or retrolisthesis noted within the lumbar spine. Bilateral partial pedicle screws are present at the L5 level, stable. There are stable bilateral L3 and L4 pedicle screws with vertically oriented interlocking rods. This study demonstrates no evidenc e for hardware failure involving the bilateral L3-4 posterior fusion hardware. There are bilateral l aminectomy changes from L2-3 level through L5-S1 level, stable as well. There is a stable degree of degenerative mid lumbar spine dextroscoliosis with apex at L3 level. No significant anterolisthesis or retrolisthesis is evident on this exam. T12-L1: Bilateral facet hypertrophy noted, right greater than left. Disk space narrowing is present . No osseous cause of significant central canal or neural foraminal stenosis. L1-2: There is a small foraminal disk protrusion on the left. There is mild bilateral facet hypertr ophy and hypertrophy of the ligamentum flavum. There is mild disk space narrowing. Mild central can al stenosis and bilateral neural foraminal stenosis suspected. L2-3: There is prominent degenerative end plate change with disk space narrowing and vacuum disk for mation as well as anterior and bilateral lateral osteophyte formation, left greater than right. Prominent bilateral facet hypertrophy of the ligamentum flavum noted, left greater than right. Mild/ moderate central canal stenosis noted with probable moderate left lateral recess stenosis. Moderate right and severe left neural foraminal stenosis noted. L3-4: There is disk space narrowing with left-sided intervertebral disk fusion. There is prominent bilateral facet hypertrophy, left greater than right. No significant central canal stenosis secondar y to bilateral laminectomy change. Severe left and moderate right neural foraminal stenosis suspecte d. L4-5: No central canal stenosis on the basis of bilateral laminectomy change. Severe bilateral face t hypertrophy. Disk space narrowing with vacuum disk formation and posterior disk-osteophyte complex present. Moderate/severe bilateral neural foraminal stenosis. L5-S1: There is disk space narrowing with vacuum disk formation and mild disk bulge. Bilateral face t hypertrophy. There is a severe degree of neural foraminal stenosis on the right secondary to facet hypertrophy and disk bulge. Moderate/severe neural foraminal stenosis noted as well. No acute fracture or dislocation. No worrisome lytic or blastic bone lesion. IMPRESSION: Prominent multilevel degenerative change within the lumbar spine as detailed above. Multilevel posto perative change. POS: [facility]
== END 2020-04-19 10:44 | disposition home or self-care (01) ==
LOC: SCSCT 10:43
PROVIDERS: ATTEND Neurological Surgery
DX: M47.26 Other spondylosis with radiculopathy, lumbar region (principal); M47.27 Other spondylosis with radiculopathy, lumbosacral region; M47.25 Other spondylosis with radiculopathy, thoracolumbar region
CPT/HCPCS: 72131

== ENCOUNTER 2020-05-07 04:43 | Outpatient (CLI) | payer MEDICARE, OTHER ==
[2020-05-07 10:46] LABS: Hemoglobin 15.8 g/dL (14.0-18.0); Mean Corpuscular HGB CONC 31.1 g/dL (32.0-36.0); Mean Corpuscular Hemoglobin 26.7 pg (27.0-31.0); Mean Corpuscular Volume 85.9 fL (78.0-98.0); Mean Platelet Volume 8.3 fL (7.4-10.4); Platelet Count 176 thou/uL (130-400); RBC Distribution Width 16.3 % (11.5-14.5); Red Blood Cell (RBC) Count 5.93 mill/uL (4.70-6.10); White Blood Cell (WBC) Count 5.6 thou/uL (4.8-10.8)
[2020-05-07 11:18] LABS: Anion Gap 12 mmol/L (10-20); BUN (Urea Nitrogen) 19 mg/dL (8.4-25.7); Calc. Creatinine Clearance 0 mL/min (70-130); Calcium 9.6 mg/dL (7.8-10.44); Carbon Dioxide 29 mmol/L (23-31); Chloride 103 mmol/L (98-107); Estimated GFR-MDRD 55; Glucose 99 mg/dL (80-115); Potassium 4.5 mmol/L (3.5-5.1); Sodium 139 mmol/L (136-145)
[2020-05-08 12:36] LABS: SARS-CoV-2 MS2 Positive; SARS-CoV-2 N Gene Negative; SARS-CoV-2 S Gene Negative; SARS-CoV-2 orf1ab Negative
--- NOTE | 2020-05-08 19:43 | EKG ---
Test Reason : Blood Pressure : / mmHG Vent. Rate : 063 BPM Atrial Rate : 063 BPM P-R Int : 272 ms QRS Dur : 098 ms QT Int : 400 ms P-R-T Axes : 065 058 028 degrees QTc Int : 409 ms Sinus rhythm with 1st degree A-V block Early repolarization Otherwise normal ECG When compared with ECG of 15-MAY-2019 09:59, No significant change was found Confirmed by ODALYS WILSON, . SVianney ([id number]) on 05/08/2020 7:42:53 PM Referred By: MARISOL Confirmed By:DR. Kirsten MORROW MD
== END 2020-05-07 04:44 | disposition home or self-care (01) ==
LOC: LABBT 04:43
PROVIDERS: ATTEND Neurological Surgery
DX: Z01.818 Encounter for other preprocedural examination (principal); Z11.59 Encounter for screening for other viral diseases; M54.16 Radiculopathy, lumbar region
CPT/HCPCS: 80048; 85027; 93005; U0003; 87635; 93010

== ENCOUNTER 2020-05-12 07:22 | Day surgery (SDC) | payer MEDICARE ==
[2020-05-05 09:03] VITALS: BMI 30.4
--- NOTE | 2020-05-11 18:59 | HP ---
HISTORY OF PRESENT ILLNESS: Mr. Irizarry is known to us for multiple evaluations of lower back pain as well as lumbar decompression. He returns now with significant left lower extremity, groin, and anterior thigh pain, that radiates from his lower back. We have new imaging in the form of an MRI scan and CT, that revealed significant stenosis to the left at L2-L3 interface, that would explain his symptoms. He hopes to treat this surgically if possible. PAST MEDICAL HISTORY: Significant for: 1. Hypotestosteronism. 2. Hypertension. 3. Hyperlipidemia. 4. Hypothyroidism. 5. Seasonal allergies. CURRENT MEDICATIONS: 1. Losartan. 2. Carvedilol. 3. Lansoprazole. 4. Levothyroxine. 5. Testosterone. 6. Clonidine. 7. Fluticasone. ALLERGIES: NO KNOWN DRUG ALLERGIES. PHYSICAL EXAMINATION: Deferred secondary to COVID-19 telehealth visit. PLAN: Dr. Rainey met with the patient, reviewed imaging, and advocated for a left L2-L3 decompression. He explained the patient risks, benefits, and alternatives to the procedure. The patient expressed understanding and elected to move forward with surgery as discussed. I do believe the patient is mentally competent and capable of making medical decisions for himself. We will move forward with surgery as planned. Job ID: [id number]
[2020-05-12] MEDS ORDERED: Bupivacaine PF 0.5% 30 ML VIAL ONE (08:46)
[2020-05-12] MEDS ORDERED: Thrombin 5000 UNITS/5 ML VIAL ONE (08:46)
[2020-05-12] MEDS ORDERED: EPINEPHrine 1 MG/ML AMP ONE (08:46)
[2020-05-12] MEDS ORDERED: Fentanyl 100 MCG/2 ML VIAL ONE ×3 (08:59→11:23)
[2020-05-12] MEDS ORDERED: HYDROmorphone 2 MG/ML VIAL ONE (08:59)
--- NOTE | 2020-05-12 10:44 | OP ---
DATE OF PROCEDURE: 05/12/2020 TALENT PROGRAM MANAGER: Valeriano Betancourt PA-C INDICATION: Pain. DIAGNOSIS: Right leg pain. PROCEDURE PERFORMED: Reoperation of right L2-L3 decompression. ANESTHESIA: General. DESCRIPTION OF PROCEDURE: The patient was brought into the operating room and placed under general anesthesia. He was flipped from the supine to prone position on operating room table. The upper portion of the previous incision was identified and an incision planned. After prepping and draping and an appropriate preoperative pause, the incision was created. The soft tissues were swept right of midline. A self-retaining retractor was placed and a C-arm image was obtained to confirm the appropriate level. After confirming the appropriate level with C-arm fluoroscopy, high-speed cutting drill bit as well as 2, 3, and 4 mm Kerrisons were used to perform a laminectomy along the lateral recesses of L2-L3 in order to decompress the descending L3 nerve root, but also performed a foraminotomy over the exiting L2 nerve root. There was extensive scarring present. We were able to carefully remove some of the adhesions as part of the decompression. After completing the decompression, the wound was irrigated. Hemostasis was maintained throughout. The wound was then closed in anatomic layers, and a pressure dressing was applied. There were no known procedural complications. Job ID: [id number]
[2020-05-12] MEDS ORDERED: Dexamethasone 20 MG/5 ML VIAL ONE (10:47)
[2020-05-12] MEDS ORDERED: Ondansetron PF 4 MG/2 ML Vial ONE (10:47)
[2020-05-12] MEDS ORDERED: Glycopyrrolate 0.2 MG/ML 5 ML SYRINGE ONE (10:47)
[2020-05-12] MEDS ORDERED: EPHEDRINE 25 MG/5 ML SYRINGE ONE (10:47)
[2020-05-12] MEDS ORDERED: Rocuronium Bromide 10 MG/ML (10ML VIAL) ONE (10:47)
[2020-05-12] MEDS ORDERED: Lidocaine 1% PF 5 ML VIAL ONE (10:47)
[2020-05-12] MEDS ORDERED: PROPOFOL 200 MG/20 ML VIAL ONE (10:47)
[2020-05-12] MEDS ORDERED: hydrALAZINE 20 MG/ML VIAL ONE (10:50)
[2020-05-12] MEDS ORDERED: Morphine 4 MG/ML VIAL ONE (11:05)
[2020-05-12] MEDS ORDERED: Morphine 2 MG/ML VIAL ONE ×2 (11:21→11:59)
== END 2020-05-12 13:50 | disposition home or self-care (01) ==
LOC: SDC 07:22
PROVIDERS: ATTEND Neurological Surgery
PROC: 01NB0ZZ Release Lumbar Nerve, Open Approach (ICD-10-PCS; principal; 2020-05-12)
DX: M48.061 Spinal stenosis, lumbar region without neurogenic claudication (principal); M54.16 Radiculopathy, lumbar region; E29.1 Testicular hypofunction; I10 Essential (primary) hypertension; E78.5 Hyperlipidemia, unspecified; E03.9 Hypothyroidism, unspecified; J30.2 Other seasonal allergic rhinitis; I25.10 Atherosclerotic heart disease of native coronary artery without angina pectoris; G47.30 Sleep apnea, unspecified; G89.29 Other chronic pain; M54.9 Dorsalgia, unspecified; Z79.811 Long term (current) use of aromatase inhibitors; Z79.82 Long term (current) use of aspirin; Z79.899 Other long term (current) drug therapy; Z91.048 Other nonmedicinal substance allergy status; Z95.1 Presence of aortocoronary bypass graft; Z98.1 Arthrodesis status
CPT/HCPCS: 63030; 76000; J2270; J0171; J0360; J0690; J1100; J1170; J2405; J2704; J3010; S0020

== ENCOUNTER 2020-10-27 06:49 | Outpatient (CLI) | payer MEDICARE ==
[2020-10-27 15:35] LABS: #Eosinphils 0.2 10x3/uL (0.0-0.5); #Monocytes 0.6 10x3/uL (0.0-1.1); #Neutrophils 5.1 10x3/uL (1.5-8.4); %Basophils 0.4 % (0.0-2.0); %Eosinophils 2.6 % (0.0-6.0); %Lymphocytes 15.1 % (18.0-47.0); %Monocytes 8.3 % (0.0-10.0); %Neutrophils 73.2 % (40.0-75.0); Hemoglobin 16.1 g/dL (14.0-18.0); Mean Corpuscular HGB CONC 31.9 G/DL (32.0-36.0); Mean Corpuscular Hemoglobin 27.5 PG (27.0-33.0); Mean Platelet Volume 9.2 fl (7.4-10.4); Platelet Count 172 10x3/uL (130-400); RBC Distribution Width 16.3 % (11.5-14.5); Red Blood Cell (RBC) Count 5.86 10x6/uL (4.40-5.80); White Blood Cell (WBC) Count 6.9 10x3/uL (4.5-11.0)
[2020-10-28 00:19] LABS: SARS-CoV-2 MS2 Positive; SARS-CoV-2 N Gene Negative; SARS-CoV-2 S Gene Negative; SARS-CoV-2 by NAA Not Detected (NotDetected); SARS-CoV-2 orf1ab Negative
== END 2020-10-27 06:50 | disposition home or self-care (01) ==
LOC: LABBT 06:49
PROVIDERS: ATTEND Orthopaedic Surgery Hand Surgery
DX: Z01.818 Encounter for other preprocedural examination (principal); G56.01 Carpal tunnel syndrome, right upper limb; Z20.828 Contact with and (suspected) exposure to other viral communicable diseases
CPT/HCPCS: 85025; U0003; 87635; 93005; 93010

== ENCOUNTER 2020-11-01 11:16 | Day surgery (SDC) | payer MEDICARE ==
[2020-10-26 10:25] VITALS: BMI 30.4
[~2020-11-01 11:16] MED LIST: Dexamethasone 20 MG/5 ML VIAL ONE; Glycopyrrolate 0.2 MG/ML 5 ML SYRINGE ONE; Ketorolac Tromethamine 30 MG/ML VIAL ONE; Lidocaine 1% PF 5 ML VIAL ONE; Ondansetron PF 4 MG/2 ML Vial ONE; PROPOFOL 200 MG/20 ML VIAL ONE; ePHEDrine 50 MG/ML VIAL ONE
[2020-11-01] MEDS ORDERED: Fentanyl 100 MCG/2 ML VIAL ONE (13:00)
[2020-11-01] MEDS ORDERED: Bupivacaine PF 0.5% 30 ML VIAL ONE (13:14)
[2020-11-01] MEDS ORDERED: Sodium Chloride 0.9% 10 ML ONE (13:14)
[2020-11-01] MEDS ORDERED: Bacitracin Zinc Ointment 30 gm TUBE ONE (13:14)
[2020-11-01] MEDS ORDERED: Betamet Acet/Betamet Na Ph 30 MG/5 ML VIAL ONE (13:14)
[2020-11-01] MEDS ORDERED: Meperidine HCl/PF 25 MG/ML VIAL ONE (15:21)
[2020-11-01] MEDS ORDERED: Labetalol HCl 100 MG/20 ML VIAL ONE (15:32)
[2020-11-01] MEDS ORDERED: hydrALAZINE 20 MG/ML VIAL ONE (15:51)
[2020-11-01] MEDS ORDERED: HYDROcodone/Acetaminophen 5/325 mg Tablet ONE (16:26)
--- NOTE | 2020-11-02 07:13 | OP ---
DATE OF PROCEDURE: 11/01/2020 PREOPERATIVE DIAGNOSIS: Right carpal tunnel syndrome. POSTOPERATIVE DIAGNOSIS: Right carpal tunnel syndrome. PROCEDURE PERFORMED: Right carpal tunnel release. TOURNIQUET TIME: 12 minutes. ESTIMATED BLOOD LOSS: 10 mL. FINDINGS: Tight transverse carpal ligament, hourglass formation over an approximately 1 cm area of median nerve within the carpal canal. No tenosynovitis was seen. ANESTHESIA: General LMA technique augmented by 10 mL of 0.5% Marcaine block, given before the incision. No epinephrine. INDICATION: Carpal tunnel syndrome by history and physical exam, which is not resolved with conservative treatment and injection. EMG positive. DESCRIPTION OF PROCEDURE: After successful general endotracheal anesthesia, the limb was prepped and draped. The patient then had the time-out done appropriately and including the fact he did not have beta-blocks. We then outlined the incision, which began just proximal to Green cardinal line and inline with ring finger from mediolateral as far proximal as 5 mm distal to the volar wrist flexion crease. We carried this through skin. We exsanguinated the limb, gave the injection completely, and exsanguinated the limb. Tourniquet inflated to 250 mmHg pressure. Standard incision was made through skin and subcutaneous tissue to penetrate the fascia. We then placed a baby Weitlaner retractor to maximize skin retraction. This revealed the transverse carpal ligament. We entered it just on the ulnar 1/3 of the palmaris longus impression. We carried this through the entire width and depth of the carpal ligament until we saw the underlying tendons and here, dissected carefully with scissors, 1 cm distal and 1 cm proximal to the point, eventually we completely cleared the transverse carpal ligament with a [place] blade. We then inspected the area and found small remnants of tightness and this was excised. We then reversed our field of view, expanded the Weitlaner retracted, and then placed two Jarred retractors, in right angle, underneath the skin proximally and began our dissection proximal until we reached a point approximately 1 cm from the transverse carpal ligament origin that we had to have visualization, retracted vigorously and removed the fascia proximally. We then placed 3 mL Celestone and the hourglass formation was seen in the midportion of the nerve within the carpal ligament as well as a small amount of resection of the ECU and the ECU sheath. Bulky dressing was applied with no splint after closing the wound and obtaining hemostasis with 4-0 nylon interrupted mattress pattern. Job ID: [id number]
== END 2020-11-01 17:10 | disposition home or self-care (01) ==
LOC: SDC 11:16
PROVIDERS: ATTEND Orthopaedic Surgery Hand Surgery
PROC: 01N50ZZ Release Median Nerve, Open Approach (ICD-10-PCS; principal; 2020-11-01)
DX: G56.01 Carpal tunnel syndrome, right upper limb (principal); M16.10 Unilateral primary osteoarthritis, unspecified hip; G47.30 Sleep apnea, unspecified; I25.10 Atherosclerotic heart disease of native coronary artery without angina pectoris; I10 Essential (primary) hypertension; E78.5 Hyperlipidemia, unspecified; E03.9 Hypothyroidism, unspecified; F17.200 Nicotine dependence, unspecified, uncomplicated; M54.16 Radiculopathy, lumbar region; Z79.82 Long term (current) use of aspirin; Z79.899 Other long term (current) drug therapy; Z91.048 Other nonmedicinal substance allergy status; Z95.1 Presence of aortocoronary bypass graft
CPT/HCPCS: J0360; J0690; J0702; J2175; J3010; J3490; S0020

== ENCOUNTER 2020-11-17 09:35 | Outpatient (CLI) | payer MEDICARE ==
--- NOTE | 2020-11-17 11:43 | MRI ---
Exam: Lumbar spine MRI with and without contrast COMPARISON: 04/01/2020. HISTORY: Previous back surgery with back pain. Spinal stenosis. CORRELATION: Lumbar spine CT, 04/19/2020. FINDINGS: Stable metallic susceptibly artifact secondary to fusion changes at L3, L4. There are residual transp edicular screws at L5. Stable type I/type II Modic changes at L2-L3. Stable signal intensity of the paraspinal muscles. Stable T2 hyperintensity in the right renal cortex compatible with a cortical cyst. Conus medullaris terminates at the superior aspect of L2. Stable hemangioma at T12. Postcontrast images do not demonstrate any abnormal enhancement with regards to the vertebral bodies. There is no abnormal enhancement within the thecal sac including the cauda equina and conus medullaris. Laminectomy defect at L2-L3, L3-L4, L4-L5 and L5-S1 is redemonstrated. T12-L1: Disc desiccation without significant loss of disc space height. No posterior disc abnormality . No significant central canal stenosis or significant neural foraminal foraminal narrowing. L1-L2: Mild loss of disc space height. Broad-based disc bulge, ligamentum flavum thickening and facet hypertrophy result in mild central canal stenosis. Moderate bilateral neural foraminal narrowing. L2-L3: There is mild fluid signal intensity in the disc space. Postcontrast images demonstrate mild e nhancement. The endplates are preserved. The possibility of a developing discitis cannot be entirely excluded. No evidence of associated osteomyelitis. 6.5 mm of retrolisthesis of L2 upon L3. T here is a broad-based disc bulge along with bilateral facet hypertrophy. Posterior laminectomy defect is identified. There is narrowing of the left subarticular zone with partial obscuration of th e traversing left L3 nerve root. Moderate to severe right and severe left neural foraminal narrowing. L3-L4: There is a small amount of fluid in the disc space. There is associated mild enhancement. Endp lates are preserved. Correlate for possible developing discitis without definite osteomyelitis. There is a broad-based disc bulge, posterior laminectomy defect. There is no significant central elina l stenosis. Moderate to severe bilateral neural foraminal narrowing. L3-L4: Mild desiccation with mild loss of disc space height. Broad-based disc bulge. Posterior pricilla ctomy defect. No significant central canal stenosis. Severe right and moderate to severe left neural foraminal narrowing. L5-S1: Mild loss of disc space height. Broad-based disc bulge. Posterior laminectomy defect. No signi ficant central canal stenosis. Severe right and moderate to severe left neural foraminal narrowing. IMPRESSION: 1. Questionable developing discitis at L2-L3 and possibly at L3-L4. The fluid signal intensity in L3- L4 is similar to the previous examination. Clinical correlation is essential. 2. Grade 1 retrolisthesis of L2 upon L3. There are associated type I and type II Modic changes. 3. Multilevel significant central canal stenosis and neural foraminal narrowing as detailed above. Findings conveyed to Dr. Unger via [facility] 11/17/2020 at 11:41 AM Code CR Transcribed Date/Time: 11/17/2020 11:52 AM
[2020-11-17] MEDS ORDERED: Magnevist 469MG/ML 20 ML VIAL ONE (14:24)
== END 2020-11-17 09:36 | disposition home or self-care (01) ==
LOC: BICMRI 09:35
PROVIDERS: ATTEND Specialist
DX: M48.062 Spinal stenosis, lumbar region with neurogenic claudication (principal); M43.16 Spondylolisthesis, lumbar region; M48.07 Spinal stenosis, lumbosacral region
CPT/HCPCS: 72158; 82565; A9579

== ENCOUNTER 2020-11-18 09:58 | Outpatient (CLI) | payer MEDICARE ==
--- NOTE | 2020-11-18 10:41 | RAD ---
EXAM: XR Lumbar Spine 2 Or 3 View PROVIDED CLINICAL HISTORY: Discitis COMPARISON: 04/02/2019 FINDINGS: 6 nonrib-bearing lumbar-type vertebral bodies are redemonstrated. Right convexity curvature of the new mbar spine is again seen. Postoperative changes as previously described appears stable. There is no evidence for hardware loosening or migration. Sagittal lumbar alignment appears normal. There is no e vidence for abnormal translational motion with flexion and extension. Multilevel degenerative changes are redemonstrated, similar to prior. Vertebral body heights appear preserved. Vascular calci fications are seen. IMPRESSION: Stable radiographic appearance of the lumbar spine.
== END 2020-11-18 09:59 | disposition home or self-care (01) ==
LOC: BICRAD 09:58
PROVIDERS: ATTEND Specialist
DX: M46.46 Discitis, unspecified, lumbar region (principal)
CPT/HCPCS: 72100

== ENCOUNTER 2021-02-21 15:06 | Outpatient (CLI) | payer MEDICARE ==
[2021-02-22 01:19] LABS: SARS-CoV-2 PCR by NAA Not Detected (NotDetected)
== END 2021-02-21 15:07 | disposition home or self-care (01) ==
LOC: LABBT 15:06
PROVIDERS: ATTEND Specialist
DX: Z01.812 Encounter for preprocedural laboratory examination (principal); Z20.822 Contact with and (suspected) exposure to COVID-19
CPT/HCPCS: U0003; U0005; 87635

== ENCOUNTER 2021-02-24 07:48 | Day surgery (SDC) | payer MEDICARE ==
[2021-02-23 11:59] VITALS: BMI 31.0
[2021-02-24] MEDS ORDERED: Bupivacaine PF 0.5% 30 ML VIAL ONE (09:17)
[2021-02-24] MEDS ORDERED: EPINEPHrine 1 MG/ML AMP ONE (09:17)
[2021-02-24] MEDS ORDERED: Sodium Chloride 0.9% 0 ML ONE (09:17)
[2021-02-24] MEDS ORDERED: CEFAZOLIN 1 GM VIAL ONE (09:48)
[2021-02-24] MEDS ORDERED: Sodium Chloride 0.9% 100 ML ONE (09:48)
[2021-02-24] MEDS ORDERED: HYDROmorphone 0.5 MG/0.5 ML SYRINGE ONE (10:13)
[2021-02-24] MEDS ORDERED: Fentanyl 100 MCG/2 ML VIAL ONE (10:13)
[2021-02-24] MEDS ORDERED: PROPOFOL 40 ML ONE (10:13)
[2021-02-24] MEDS ORDERED: Lidocaine 1% PF 5 ML VIAL ONE (10:36)
[2021-02-24] MEDS ORDERED: Glycopyrrolate 0.2 MG/ML 5 ML SYRINGE ONE (10:36)
[2021-02-24] MEDS ORDERED: HYDROcodone/Acetaminophen 5/325 mg Tablet ONE (13:03)
== END 2021-02-24 15:00 | disposition home or self-care (01) ==
LOC: SDC 07:48
PROVIDERS: ATTEND Specialist
PROC: 0JH70DZ Insertion of Multiple Array Stimulator Generator into Back Subcutaneous Tissue and Fascia, Open Approach (ICD-10-PCS; principal; 2021-02-24)
PROC: 00HU3MZ Insertion of Neurostimulator Lead into Spinal Canal, Percutaneous Approach (ICD-10-PCS; 2021-02-24)
DX: M96.1 Postlaminectomy syndrome, not elsewhere classified (principal); G89.4 Chronic pain syndrome; M43.16 Spondylolisthesis, lumbar region; M54.16 Radiculopathy, lumbar region; G47.30 Sleep apnea, unspecified; M19.09 Primary osteoarthritis, other specified site; I25.10 Atherosclerotic heart disease of native coronary artery without angina pectoris; E78.5 Hyperlipidemia, unspecified; E03.9 Hypothyroidism, unspecified; I10 Essential (primary) hypertension; F10.11 Alcohol abuse, in remission; Z79.811 Long term (current) use of aromatase inhibitors; Z79.82 Long term (current) use of aspirin; Z79.899 Other long term (current) drug therapy; Z91.048 Other nonmedicinal substance allergy status; Z95.1 Presence of aortocoronary bypass graft
CPT/HCPCS: 72020; 76000; 93005; 93010; C1778; C1787; J0171; J0690; J1170; J2704; J3010; J3490; L8687; L8689; S0020

== ENCOUNTER 2021-06-22 08:33 | Outpatient (CLI) | payer MEDICARE | END 2021-06-22 08:34 | disposition home or self-care (01) | LOC: MRI 08:33 | PROVIDERS: ATTEND Orthopaedic Surgery Hand Surgery | DX: S53.21XA Traumatic rupture of right radial collateral ligament, initial encounter (principal); S66.011A Strain of long flexor muscle, fascia and tendon of right thumb at wrist and hand level, initial encounter ==

== ENCOUNTER 2021-08-23 14:14 | Outpatient (CLI) | payer MEDICARE ==
[2021-08-23 15:58] LABS: #Eosinphils 0.2 10x3/uL (0.0-0.5); #Monocytes 0.7 10x3/uL (0.0-1.1); #Neutrophils 3.1 10x3/uL (1.5-8.4); %Basophils 0.8 % (0.0-2.0); %Eosinophils 3.3 % (0.0-6.0); %Lymphocytes 21.2 % (18.0-47.0); %Monocytes 14.1 % (0.0-10.0); Hemoglobin 18.1 g/dL (13.5-17.5); Mean Corpuscular HGB CONC 33.3 g/dL (32.0-36.0); Mean Corpuscular Hemoglobin 29.9 pg (27.0-33.0); Mean Corpuscular Volume 89.8 fl (81.2-95.1); Mean Platelet Volume 9.6 fl (7.4-10.4); Platelet Count 153 10x3/uL (150-450); RBC Distribution Width 15.3 % (11.5-14.5); Red Blood Cell (RBC) Count 6.05 10x6/uL (4.32-5.72); White Blood Cell (WBC) Count 5.2 10x3/uL (3.5-10.5)
[2021-08-23 16:05] LABS: Anion Gap 16 mmol/L (10-20); BUN (Urea Nitrogen) 21 mg/dL (8.4-25.7); Calc. Creatinine Clearance 0 mL/min (70-130); Calcium 9.4 mg/dL (7.8-10.44); Carbon Dioxide 25 mmol/L (23-31); Chloride 104 mmol/L (98-107); Glucose 80 mg/dL (80-115); Potassium 4.5 mmol/L (3.5-5.1); Sodium 140 mmol/L (136-145)
[2021-08-24 00:43] LABS: SARS-CoV-2 PCR by NAA Not Detected (NotDetected)
== END 2021-08-23 14:15 | disposition home or self-care (01) ==
LOC: LABBT 14:14
PROVIDERS: ATTEND Orthopaedic Surgery Hand Surgery
DX: Z01.818 Encounter for other preprocedural examination (principal); M65.9 Synovitis and tenosynovitis, unspecified; M65.311 Trigger thumb, right thumb; M89.9 Disorder of bone, unspecified; Z20.822 Contact with and (suspected) exposure to COVID-19
CPT/HCPCS: 80048; 85025; U0003; U0005; 93005; 93010

== ENCOUNTER 2021-08-26 05:42 | Day surgery (SDC) | payer MEDICARE ==
[2021-08-24 14:40] VITALS: BMI 30.7
[2021-08-26] MEDS ORDERED: ceFAZolin 2 GM/DEX 5% 100 ML BAG ONE (05:52)
[2021-08-26] MEDS ORDERED: Betamet Acet/Betamet Na Ph 30 MG/5 ML VIAL ONE (06:17)
[2021-08-26] MEDS ORDERED: Bacitracin Zinc Ointment 30 gm TUBE ONE (06:17)
[2021-08-26] MEDS ORDERED: Neomycin-Polymyxin 1 ML AMP ONE (06:17)
[2021-08-26] MEDS ORDERED: Bupivacaine PF 0.5% 30 ML VIAL ONE (06:17)
[2021-08-26] MEDS ORDERED: Midazolam HCl 2 mg/2 ml Vial ONE (07:12)
[2021-08-26] MEDS ORDERED: Fentanyl 100 MCG/2 ML VIAL ONE (07:12)
[2021-08-26] MEDS ORDERED: PROPOFOL 200 MG/20 ML VIAL ONE (07:20)
[2021-08-26] MEDS ORDERED: Lidocaine 1% PF 5 ML VIAL ONE (07:20)
[2021-08-26] MEDS ORDERED: ePHEDrine 50 MG/ML VIAL ONE (07:20)
[2021-08-26] MEDS ORDERED: Ketorolac Tromethamine 30 MG/ML VIAL ONE (09:24)
[2021-08-26] MEDS ORDERED: HYDROcodone/Acetaminophen 5/325 mg Tablet ONE (10:22)
== END 2021-08-26 10:55 | disposition home or self-care (01) ==
LOC: SDC 05:42
PROVIDERS: ATTEND Orthopaedic Surgery Hand Surgery
PROC: 0PBT0ZX Excision of Right Finger Phalanx, Open Approach, Diagnostic (ICD-10-PCS; principal; 2021-08-26)
PROC: 0LN70ZZ Release Right Hand Tendon, Open Approach (ICD-10-PCS; 2021-08-26)
PROC: 0MQ70ZZ Repair Right Hand Bursa and Ligament, Open Approach (ICD-10-PCS; 2021-08-26)
DX: M89.8X4 Other specified disorders of bone, hand (principal); M67.843 Other specified disorders of tendon, right hand; M65.311 Trigger thumb, right thumb; M65.841 Other synovitis and tenosynovitis, right hand; S66.011A Strain of long flexor muscle, fascia and tendon of right thumb at wrist and hand level, initial encounter; G47.30 Sleep apnea, unspecified; G89.29 Other chronic pain; M54.9 Dorsalgia, unspecified; F10.11 Alcohol abuse, in remission; I25.10 Atherosclerotic heart disease of native coronary artery without angina pectoris; E78.5 Hyperlipidemia, unspecified; E03.9 Hypothyroidism, unspecified; I10 Essential (primary) hypertension; Z79.811 Long term (current) use of aromatase inhibitors; Z79.82 Long term (current) use of aspirin; Z79.899 Other long term (current) drug therapy; Z91.048 Other nonmedicinal substance allergy status; Z95.1 Presence of aortocoronary bypass graft
CPT/HCPCS: 26210; 26545; 73140; 76000; C1713; 88305; 88311; J0702; J1885; J2250; J2704; J3010; J3490; S0020

== ENCOUNTER 2023-01-26 09:39 | Outpatient (CLI) | payer MEDICARE ==
[2023-01-26 10:53] LABS: #Eosinphils 0.1 10x3/uL (0.0-0.5); #Monocytes 0.6 10x3/uL (0.0-1.1); %Basophils 0.3 % (0.0-2.0); %Eosinophils 1.4 % (0.0-6.0); %Lymphocytes 14.1 % (18.0-47.0); %Monocytes 8.9 % (0.0-10.0); Hemoglobin 14.5 g/dL (13.5-17.5); Mean Corpuscular Hemoglobin 25.2 pg (27.0-33.0); Mean Corpuscular Volume 81.3 fl (81.2-95.1); Mean Platelet Volume 9.2 fl (7.4-10.4); Platelet Count 201 10x3/uL (150-450); RBC Distribution Width 16.8 % (11.5-14.5); Red Blood Cell (RBC) Count 5.76 10x6/uL (4.32-5.72); White Blood Cell (WBC) Count 6.7 10x3/uL (3.5-10.5)
[2023-01-26 11:37] LABS: Anion Gap 16 mmol/L (10-20); BUN (Urea Nitrogen) 24 mg/dL (8.4-25.7); Calc. Creatinine Clearance 0 mL/min (70-130); Calcium 9.6 mg/dL (7.8-10.44); Carbon Dioxide 22 mmol/L (23-31); Chloride 102 mmol/L (98-107); Estimated GFR 74; Glucose 111 mg/dL (80-115); Potassium 4.6 mmol/L (3.5-5.1); Sodium 135 mmol/L (136-145)
== END 2023-01-26 09:40 | disposition home or self-care (01) ==
LOC: LABBT 09:39
PROVIDERS: ATTEND Orthopaedic Surgery Hand Surgery
DX: Z01.812 Encounter for preprocedural laboratory examination (principal); M65.332 Trigger finger, left middle finger
CPT/HCPCS: 80048; 85025

== ENCOUNTER 2023-01-30 07:29 | Day surgery (SDC) | payer MEDICARE ==
[2023-01-26 14:26] VITALS: BMI 29.8
[2023-01-30] MEDS ORDERED: Bupivacaine PF 0.5% 30 ML VIAL ONE (11:32)
[2023-01-30] MEDS ORDERED: CEFAZOLIN 2 GM VIAL ONE (11:40)
[2023-01-30] MEDS ORDERED: Sodium Chloride 0.9% 100 ML ONE (11:40)
[2023-01-30] MEDS ORDERED: Dexamethasone 20 MG/5 ML VIAL ONE (11:55)
[2023-01-30] MEDS ORDERED: Lidocaine 1% PF 5 ML VIAL ONE (11:55)
[2023-01-30] MEDS ORDERED: PROPOFOL 200 MG/20 ML VIAL ONE (11:55)
[2023-01-30] MEDS ORDERED: Ketorolac Tromethamine 30 MG/ML VIAL ONE (11:55)
[2023-01-30] MEDS ORDERED: Ondansetron PF 4 MG/2 ML Vial ONE (11:55)
[2023-01-30] MEDS ORDERED: Bacitracin Zinc Ointment 30 gm TUBE ONE (11:59)
[2023-01-30] MEDS ORDERED: Neomycin-Polymyxin 1 ML AMP ONE (11:59)
[2023-01-30] MEDS ORDERED: Betamet Acet/Betamet Na Ph 30 MG/5 ML VIAL ONE (11:59)
== END 2023-01-30 13:55 | disposition home or self-care (01) ==
LOC: SDC 07:29
PROVIDERS: ATTEND Orthopaedic Surgery Hand Surgery
PROC: 0LN80ZZ Release Left Hand Tendon, Open Approach (ICD-10-PCS; principal; 2023-01-30)
DX: M65.332 Trigger finger, left middle finger (principal); G47.33 Obstructive sleep apnea (adult) (pediatric); I25.10 Atherosclerotic heart disease of native coronary artery without angina pectoris; E78.5 Hyperlipidemia, unspecified; I10 Essential (primary) hypertension; E03.9 Hypothyroidism, unspecified; K21.9 Gastro-esophageal reflux disease without esophagitis; M19.90 Unspecified osteoarthritis, unspecified site; G89.29 Other chronic pain; M54.9 Dorsalgia, unspecified; F17.290 Nicotine dependence, other tobacco product, uncomplicated; Z79.82 Long term (current) use of aspirin; Z79.890 Hormone replacement therapy; Z79.899 Other long term (current) drug therapy; Z91.048 Other nonmedicinal substance allergy status; Z95.1 Presence of aortocoronary bypass graft
CPT/HCPCS: J0702; J1100; J1885; J2405; J2704; J3490; S0020

== ENCOUNTER 2023-02-14 10:20 | Outpatient (CLI) | payer MEDICARE | END 2023-02-14 10:21 | disposition home or self-care (01) | LOC: SCSCT 10:20 | PROVIDERS: ATTEND Psychiatry & Neurology Neurology | DX: R41.3 Other amnesia (principal) | CPT/HCPCS: 70450 ==

== ENCOUNTER 2023-11-27 22:10 | Inpatient (IN) | payer MEDICARE ==
[2023-11-27 23:06] VITALS: BMI 29.0
[2023-11-27] MEDS ORDERED: Acetaminophen 325 MG TAB PO PRN (23:15)
[2023-11-27] MEDS ORDERED: Gabapentin 300 MG CAP PO PRN (23:18)
[2023-11-27 23:45] LABS: #Eosinphils 0.1 thou/uL (0.0-0.7); #Monocytes 0.7 thou/uL (0.11-0.59); %Basophils 0.5 % (0.0-1.0); %Eosinophils 1.4 % (0.0-10.0); %Lymphocytes 13.4 % (21.0-51.0); %Monocytes 12.4 % (0.0-10.0); %Neutrophils 72.1 % (42.0-75.0); Hematocrit 45.3 % (42.0-52.0); Hemoglobin 15.2 g/dL (14.0-18.0); Mean Corpuscular HGB CONC 33.6 g/dL (32.0-36.0); Mean Corpuscular Hemoglobin 32.3 pg (27.0-31.0); Mean Corpuscular Volume 96.2 fl (78.0-98.0); Mean Platelet Volume 9.3 fL (7.4-10.4); Platelet Count 167 10x3/uL (130-400); RBC Distribution Width 13.9 % (11.5-14.5); Red Blood Cell (RBC) Count 4.71 mill/uL (4.70-6.10); White Blood Cell (WBC) Count 5.6 10x3/uL (4.8-10.8)
[2023-11-27] MEDS: Morphine 2 MG/ML VIAL SLOW IVP PRN (23:45)
[2023-11-27] MEDS: Ondansetron PF 4 MG/2 ML Vial IVP PRN (23:45)
[2023-11-28 00:08] LABS: ALT (SGPT) 12 U/L (8-55); AST (SGOT) 18 U/L (5-34); Alkaline Phosphatase 60 U/L (40-110); Anion Gap 17 mmol/L (10-20); BUN (Urea Nitrogen) 9 mg/dL (8.4-25.7); Bilirubin, Total 1.1 mg/dL (0.2-1.2); Calc. Creatinine Clearance 84 mL/min (70-130); Calcium 9.6 mg/dL (7.8-10.44); Carbon Dioxide 23 mmol/L (23-31); Chloride 100 mmol/L (98-107); Estimated GFR 81; Globulin 2.7 g/dL (2.4-3.5); Glucose 94 mg/dL (83-110); Potassium 4.3 mmol/L (3.5-5.1); Protein, Total 6.7 g/dL (5.8-8.1); Sodium 136 mmol/L (136-145)
[2023-11-28] MEDS: Polyethylene Glycol 3350 17 GM Packet PO SCH (04:16)
[2023-11-28] MEDS: Levothyroxine Sodium 50 MCG TAB PO SCH (04:34)
[2023-11-28] MEDS: Famotidine 20 MG TAB PO SCH (08:37)
[2023-11-28] MEDS: Naloxegol 12.5 MG TAB PO SCH (08:37)
[2023-11-28] MEDS ORDERED: Morphine 2 MG/ML VIAL SLOW IVP PRN (10:08)
[2023-11-28] MEDS: Morphine 2 MG/ML VIAL SLOW IVP SCH (10:48)
[2023-11-28] MEDS: Morphine 2 MG/ML VIAL SLOW IVP PRN (12:50)
[2023-11-28 13:04] LABS: Pleural Fluid, Amylase Less than 30 U/L (Not Available); Pleural Fluid, Glucose 99 mg/dL; Pleural Fluid, LDH 161 U/L (Not Available); Pleural Fluid, Protein 4.5 g/dL
[2023-11-28 14:01] LABS: RBC Count-Automated (BF) 10072 /cu.mm; WBC/Nucleated-Auto (BF) 1126 /cu.mm
[2023-11-28 14:27] LABS: BF Color Red; Body Fluid Source Thoracentesis Fluid; Clarity Hazy (Clear); Tube # EDTA
[2023-11-28 14:29] LABS: BF Segmented Neutrophils 8 %; Cell Count Non Hematic 54 %; Lymphocytes 38 %
[2023-11-28] MEDS: chlorproMAZINE HCl 50 MG/2 ML AMP SLOW IVP PRN (15:06)
[2023-11-28] MEDS: Ondansetron PF 4 MG/2 ML Vial IVP PRN (18:35)
[2023-11-28] MEDS ORDERED: Anastrozole 1 MG TAB PO SCH (21:00)
[2023-11-28] MEDS: Sertraline 25 MG TAB PO SCH (23:17)
[2023-11-28] MEDS: Aspirin 81 mg Enteric Coated Tablet PO SCH (23:18)
[2023-11-28] MEDS: Memantine 5 MG TAB PO SCH (23:18)
[2023-11-28] MEDS: Amlodipine 5 MG TAB PO SCH (23:18)
[2023-11-28] MEDS: Losartan 25 MG TAB PO SCH (23:18)
[2023-11-28] MEDS: Rosuvastatin 10 MG TAB PO SCH (23:19)
[2023-11-28] MEDS: Enoxaparin 40 MG (0.4 mL) SYRINGE SC SCH (23:19)
[2023-11-29 06:16] LABS: #Eosinphils 0.1 thou/uL (0.0-0.7); %Basophils 0.6 % (0.0-1.0); %Eosinophils 0.9 % (0.0-10.0); %Monocytes 13.9 % (0.0-10.0); %Neutrophils 73.2 % (42.0-75.0); Hematocrit 46.5 % (42.0-52.0); Hemoglobin 15.5 g/dL (14.0-18.0); Mean Corpuscular HGB CONC 33.3 g/dL (32.0-36.0); Mean Corpuscular Hemoglobin 32.4 pg (27.0-31.0); Mean Corpuscular Volume 97.1 fl (78.0-98.0); Mean Platelet Volume 9.5 fL (7.4-10.4); Platelet Count 188 10x3/uL (130-400); RBC Distribution Width 14.1 % (11.5-14.5); Red Blood Cell (RBC) Count 4.79 mill/uL (4.70-6.10); White Blood Cell (WBC) Count 6.8 10x3/uL (4.8-10.8)
[2023-11-29 06:44] LABS: Anion Gap 20 mmol/L (10-20); BUN (Urea Nitrogen) 19 mg/dL (8.4-25.7); Calc. Creatinine Clearance 49 mL/min (70-130); Calcium 9.4 mg/dL (7.8-10.44); Carbon Dioxide 21 mmol/L (23-31); Chloride 101 mmol/L (98-107); Estimated GFR 43; Glucose 108 mg/dL (83-110); Potassium 4.6 mmol/L (3.5-5.1); Sodium 137 mmol/L (136-145)
[2023-11-29] MEDS: Sodium Chloride 0.9% 1,000 ML IV SCH (10:40)
[2023-11-29 13:33] LABS: INR-International Normal Ratio 1.1; Prothrombin Time 14.3 sec (12.0-14.7)
[2023-11-30 05:24] LABS: #Eosinphils 0.2 thou/uL (0.0-0.7); #Monocytes 0.8 thou/uL (0.11-0.59); #Neutrophils 4.1 thou/uL (1.40-6.50); %Basophils 0.7 % (0.0-1.0); %Eosinophils 2.7 % (0.0-10.0); %Lymphocytes 12.5 % (21.0-51.0); %Monocytes 13.2 % (0.0-10.0); %Neutrophils 70.4 % (42.0-75.0); Hematocrit 42.9 % (42.0-52.0); Hemoglobin 14.4 g/dL (14.0-18.0); Mean Corpuscular HGB CONC 33.6 g/dL (32.0-36.0); Mean Corpuscular Hemoglobin 32.3 pg (27.0-31.0); Mean Corpuscular Volume 96.2 fl (78.0-98.0); Mean Platelet Volume 9.5 fL (7.4-10.4); Platelet Count 154 10x3/uL (130-400); RBC Distribution Width 13.9 % (11.5-14.5); Red Blood Cell (RBC) Count 4.46 mill/uL (4.70-6.10); White Blood Cell (WBC) Count 5.8 10x3/uL (4.8-10.8)
[2023-11-30 06:00] LABS: Anion Gap 14 mmol/L (10-20); BUN (Urea Nitrogen) 27 mg/dL (8.4-25.7); Calc. Creatinine Clearance 36 mL/min (70-130); Calcium 8.6 mg/dL (7.8-10.44); Carbon Dioxide 22 mmol/L (23-31); Chloride 103 mmol/L (98-107); Estimated GFR 30; Glucose 103 mg/dL (83-110); Potassium 4.1 mmol/L (3.5-5.1); Sodium 135 mmol/L (136-145)
[2023-11-30] MEDS: Famotidine 20 MG TAB PO SCH (08:00)
[2023-11-30] MEDS ORDERED: Sodium Bicarbonate 2.5 MEQ/5 ML SDV ONE (09:11)
[2023-11-30] MEDS ORDERED: Lidocaine 1% PF 5 ML VIAL ONE (09:11)
[2023-11-30] MEDS ORDERED: fentaNYL 50 mcg/mL 1 mL Vial ONE (09:11)
[2023-11-30] MEDS ORDERED: Midazolam HCl 2 mg/2 ml Vial ONE (09:11)
[2023-11-30] MEDS ORDERED: Lidocaine 1% w/Epinephrine 1:100K 20 ML VIAL ONE (09:11)
[2023-11-30] MEDS: Morphine 4 MG/ML VIAL SLOW IVP SCH (09:44)
[2023-11-30] MEDS ORDERED: Ondansetron PF 4 MG/2 ML Vial ONE (10:22)
[2023-11-30] MEDS: Promethazine HCl 25 MG in Sodium Chloride 0.9% 50 ML IVPB SCH (11:47)
[2023-11-30] MEDS: Sodium Chloride 0.9% 1,000 ML IV SCH (12:14)
[2023-11-30] MEDS: TESTOSTERONE CYPIONATE 200 MG/ML IM SCH (16:50)
[2023-11-30] MEDS ORDERED: Morphine 4 MG/ML VIAL SLOW IVP PRN (20:26)
[2023-11-30] MEDS ORDERED: HYDROcodone/Acetaminophen 10/325 mg Tablet PO PRN (20:29)
[2023-12-01 05:04] LABS: #Eosinphils 0.2 thou/uL (0.0-0.7); #Monocytes 0.7 thou/uL (0.11-0.59); #Neutrophils 3.7 thou/uL (1.40-6.50); %Basophils 0.6 % (0.0-1.0); %Eosinophils 3.7 % (0.0-10.0); %Lymphocytes 10.3 % (21.0-51.0); %Monocytes 12.6 % (0.0-10.0); %Neutrophils 72.4 % (42.0-75.0); Hematocrit 41.1 % (42.0-52.0); Hemoglobin 13.8 g/dL (14.0-18.0); Mean Corpuscular HGB CONC 33.6 g/dL (32.0-36.0); Mean Corpuscular Hemoglobin 32.4 pg (27.0-31.0); Mean Corpuscular Volume 96.5 fl (78.0-98.0); Mean Platelet Volume 9.5 fL (7.4-10.4); Platelet Count 155 10x3/uL (130-400); Red Blood Cell (RBC) Count 4.26 mill/uL (4.70-6.10); White Blood Cell (WBC) Count 5.1 10x3/uL (4.8-10.8)
[2023-12-01 05:29] LABS: Anion Gap 11 mmol/L (10-20); BUN (Urea Nitrogen) 19 mg/dL (8.4-25.7); Calc. Creatinine Clearance 70 mL/min (70-130); Calcium 8.5 mg/dL (7.8-10.44); Carbon Dioxide 24 mmol/L (23-31); Chloride 105 mmol/L (98-107); Estimated GFR 66; Glucose 113 mg/dL (83-110); Potassium 3.8 mmol/L (3.5-5.1); Sodium 136 mmol/L (136-145)
[2023-12-01] MEDS: HYDROcodone/Acetaminophen 10/325 mg Tablet PO PRN (05:33)
[2023-12-01] MEDS: fentaNYL 25 mcg Patch TD SCH (06:49)
[2023-12-01] MEDS: Promethazine HCl 25 MG in Sodium Chloride 0.9% 50 ML IVPB SCH (11:49)
[2023-12-01] MEDS: Dexamethasone 4 MG TAB PO SCH (15:23)
[2023-12-01] MEDS: Ondansetron ODT 4 MG TAB PO PRN (15:27)
[2023-12-01] MEDS: Promethazine HCl 25 MG in Sodium Chloride 0.9% 50 ML IVPB PRN (19:48)
[2023-12-02] MEDS: Dexamethasone 4 MG TAB PO SCH (08:29)
[2023-12-02] MEDS: Sodium Chloride 0.9% 1,000 ML IV SCH (12:04)
[2023-12-02] MEDS: HYDROcodone/Acetaminophen 10/325 mg Tablet PO PRN (16:00)
[2023-12-03] MEDS ORDERED: Triamcinolone 40 MG/ML VIAL FS SCH (08:45)
[2023-12-03] MEDS ORDERED: fentaNYL 50 mcg/mL 1 mL Vial ONE (08:52)
[2023-12-03] MEDS ORDERED: Midazolam HCl 2 mg/2 ml Vial ONE (08:52)
[2023-12-03] MEDS ORDERED: Bupivacaine 0.25% 10 ML VIAL ONE (08:52)
[2023-12-03] MEDS ORDERED: Sodium Bicarbonate 2.5 MEQ/5 ML SDV ONE (08:52)
[2023-12-03] MEDS ORDERED: Lidocaine 1% PF 5 ML VIAL ONE ×3 (08:52→11:00)
[2023-12-03] MEDS ORDERED: Lidocaine 1% w/Epinephrine 1:100K 20 ML VIAL ONE (08:52)
[2023-12-03] MEDS ORDERED: PROPOFOL 20 ML ONE (10:30)
[2023-12-03] MEDS ORDERED: Ondansetron PF 4 MG/2 ML Vial ONE (10:31)
[2023-12-03] MEDS ORDERED: Bupivacaine 0.25% HCL 30 ML VIAL ONE (11:00)
[2023-12-03] MEDS ORDERED: EPINEPHrine 1 MG/ML VIAL ONE (11:00)
[2023-12-03] MEDS ORDERED: fentaNYL PF 100 MCG/2 ML SYRINGE ONE (11:43)
[2023-12-03] MEDS ORDERED: Bisacodyl 10 MG SUPP PR PRN (17:59)
[2023-12-03] MEDS: Polyethylene Glycol 3350 17 GM Packet PO SCH (18:22)
[2023-12-03] MEDS: Ipratropium/Albuterol 3 ML NEB NEB SCH (18:44)
[2023-12-03] MEDS: Promethazine 25 MG TAB PO PRN (20:13)
[2023-12-03] MEDS: Senokot S 8.6-50 MG TAB PO SCH (20:57)
[2023-12-04 05:49] LABS: #Monocytes 0.7 thou/uL (0.11-0.59); #Neutrophils 4.9 thou/uL (1.40-6.50); %Basophils 0.2 % (0.0-1.0); %Lymphocytes 6.1 % (21.0-51.0); %Monocytes 11.4 % (0.0-10.0); %Neutrophils 81.8 % (42.0-75.0); Hematocrit 42.4 % (42.0-52.0); Mean Platelet Volume 10.1 fL (7.4-10.4); Platelet Count 180 10x3/uL (130-400); Red Blood Cell (RBC) Count 4.37 mill/uL (4.70-6.10)
[2023-12-04 06:24] LABS: ALT (SGPT) 12 U/L (8-55); AST (SGOT) 17 U/L (5-34); Albumin 3.6 g/dL (3.4-4.8); Alkaline Phosphatase 53 U/L (40-110); Anion Gap 12 mmol/L (10-20); BUN (Urea Nitrogen) 12 mg/dL (8.4-25.7); Bilirubin, Total 1.4 mg/dL (0.2-1.2); Calc. Creatinine Clearance 96 mL/min (70-130); Calcium 8.9 mg/dL (7.8-10.44); Carbon Dioxide 28 mmol/L (23-31); Chloride 102 mmol/L (98-107); Estimated GFR 93; Globulin 2.3 g/dL (2.4-3.5); Glucose 130 mg/dL (83-110); Potassium 3.6 mmol/L (3.5-5.1); Protein, Total 5.9 g/dL (5.8-8.1); Sodium 138 mmol/L (136-145)
[2023-12-04] MEDS: Haloperidol Lactate 5 MG/ML VIAL IM PRN (12:34)
[2023-12-04] MEDS: Baclofen 10 MG TAB PO SCH (16:43)
[2023-12-05] MEDS ORDERED: SODIUM CHLORIDE 0.9% IVPB SCH ×3 (06:00→08:15)
[2023-12-05] MEDS ORDERED: LEUCOVORIN CALCIUM IVPB SCH ×3 (06:00→08:15)
[2023-12-05] MEDS ORDERED: Dexamethasone 20 MG in Sodium Chloride 0.9% 50 ML IVPB SCH (06:00)
[2023-12-05] MEDS ORDERED: Fluorouracil 800 MG in Sodium Chloride 0.9% 50 ML IVPB SCH (06:00)
[2023-12-05] MEDS ORDERED: Atropine Sulfate 0.25 MG in Sodium Chloride 0.9% 50 ML IVPB SCH (06:00)
[2023-12-05 06:21] LABS: #Monocytes 0.6 thou/uL (0.11-0.59); #Neutrophils 5.1 thou/uL (1.40-6.50); %Basophils 0.2 % (0.0-1.0); %Lymphocytes 5.3 % (21.0-51.0); %Monocytes 10.1 % (0.0-10.0); %Neutrophils 84.2 % (42.0-75.0); Hematocrit 43.2 % (42.0-52.0); Hemoglobin 14.7 g/dL (14.0-18.0); Mean Corpuscular Hemoglobin 32.7 pg (27.0-31.0); Mean Platelet Volume 9.9 fL (7.4-10.4); Platelet Count 172 10x3/uL (130-400); White Blood Cell (WBC) Count 6.1 10x3/uL (4.8-10.8)
[2023-12-05 06:51] LABS: ALT (SGPT) 11 U/L (8-55); AST (SGOT) 18 U/L (5-34); Alkaline Phosphatase 56 U/L (40-110); Anion Gap 13 mmol/L (10-20); BUN (Urea Nitrogen) 14 mg/dL (8.4-25.7); Bilirubin, Total 1.5 mg/dL (0.2-1.2); Calc. Creatinine Clearance 95 mL/min (70-130); Carbon Dioxide 24 mmol/L (23-31); Chloride 101 mmol/L (98-107); Estimated GFR 92; Globulin 2.5 g/dL (2.4-3.5); Glucose 141 mg/dL (83-110); Potassium 3.5 mmol/L (3.5-5.1); Protein, Total 6.5 g/dL (5.8-8.1); Sodium 134 mmol/L (136-145)
[2023-12-05] MEDS ORDERED: Lidocaine 2% PF 5 ML VIAL ONE (08:15)
[2023-12-05] MEDS ORDERED: EPINEPHrine 1 MG/ML VIAL ONE (08:15)
[2023-12-05] MEDS ORDERED: Bupivacaine 0.25% HCL 30 ML VIAL ONE (08:15)
[2023-12-05] MEDS ORDERED: Propofol 500 MG/50 ML VIAL ONE (09:09)
[2023-12-05] MEDS ORDERED: fentaNYL PF 100 MCG/2 ML SYRINGE ONE (09:13)
[2023-12-05] MEDS ORDERED: Midazolam HCl 2 mg/2 ml Vial ONE (09:14)
[2023-12-05] MEDS ORDERED: CEFAZOLIN 2 GM VIAL ONE (10:06)
[2023-12-05] MEDS ORDERED: Sodium Chloride 0.9% 100 ML ONE (10:06)
[2023-12-05] MEDS: Polyethylene Glycol 3350 17 GM Packet PO SCH (14:08)
[2023-12-05] MEDS: Mineral Oil ENEMA PR SCH (14:08)
[2023-12-05] MEDS: Fosaprepitant Dimeglumine 150 MG in 0.9 % Sodium Chloride 145 ML IVPB SCH (14:10)
[2023-12-05] MEDS: Dexamethasone Sod Phosphate 20 MG in Sodium Chloride 0.9% 50 ML IVPB SCH (14:50)
[2023-12-05] MEDS: PALONOSETRON HCL 0.05 MG/ML 5 ML VIAL IVP SCH (15:14)
[2023-12-05] MEDS: Atropine Sulfate 0.25 MG in Sodium Chloride 0.9% 50 ML IVPB SCH (15:18)
[2023-12-05] MEDS: IRINOTECAN IVPB SCH (15:59)
[2023-12-05] MEDS: DEXTROSE 5% IVPB SCH ×2 (15:59→22:41)
[2023-12-05] MEDS: WATER IVPB SCH ×2 (15:59→22:41)
[2023-12-05] MEDS: SODIUM CHLORIDE 0.9% IVPB SCH ×2 (17:27→22:05)
[2023-12-05] MEDS: LEUCOVORIN CALCIUM IVPB SCH (17:27)
[2023-12-05] MEDS: Oxaliplatin 170 MG in Dextrose 5% in Water 500 ML IVPB SCH (18:05)
[2023-12-05] MEDS: Magnesium Citrate 300 ML BOT PO SCH (19:31)
[2023-12-05] MEDS: FLUOROURACIL IVPB SCH ×2 (22:05→22:41)
[2023-12-06 07:39] LABS: #Monocytes 0.5 thou/uL (0.11-0.59); #Neutrophils 4.9 thou/uL (1.40-6.50); %Lymphocytes 3.2 % (21.0-51.0); %Monocytes 8.8 % (0.0-10.0); %Neutrophils 87.6 % (42.0-75.0); Hematocrit 43.2 % (42.0-52.0); Hemoglobin 14.8 g/dL (14.0-18.0); Mean Corpuscular HGB CONC 34.3 g/dL (32.0-36.0); Mean Corpuscular Hemoglobin 32.3 pg (27.0-31.0); Mean Corpuscular Volume 94.3 fl (78.0-98.0); Mean Platelet Volume 9.7 fL (7.4-10.4); Platelet Count 158 10x3/uL (130-400); RBC Distribution Width 13.7 % (11.5-14.5); Red Blood Cell (RBC) Count 4.58 mill/uL (4.70-6.10); White Blood Cell (WBC) Count 5.6 10x3/uL (4.8-10.8)
[2023-12-06 08:03] LABS: ALT (SGPT) 12 U/L (8-55); AST (SGOT) 16 U/L (5-34); Albumin 3.9 g/dL (3.4-4.8); Alkaline Phosphatase 57 U/L (40-110); Anion Gap 13 mmol/L (10-20); BUN (Urea Nitrogen) 15 mg/dL (8.4-25.7); Bilirubin, Total 1.7 mg/dL (0.2-1.2); Calc. Creatinine Clearance 106 mL/min (70-130); Calcium 9.1 mg/dL (7.8-10.44); Carbon Dioxide 27 mmol/L (23-31); Chloride 96 mmol/L (98-107); Estimated GFR 95; Globulin 2.5 g/dL (2.4-3.5); Glucose 157 mg/dL (83-110); Potassium 3.7 mmol/L (3.5-5.1); Protein, Total 6.4 g/dL (5.8-8.1); Sodium 132 mmol/L (136-145)
[2023-12-07 05:09] LABS: #Monocytes 0.6 thou/uL (0.11-0.59); #Neutrophils 5.6 thou/uL (1.40-6.50); %Lymphocytes 2.5 % (21.0-51.0); %Monocytes 9.1 % (0.0-10.0); %Neutrophils 88.1 % (42.0-75.0); Hematocrit 41.8 % (42.0-52.0); Hemoglobin 14.4 g/dL (14.0-18.0); Mean Corpuscular HGB CONC 34.4 g/dL (32.0-36.0); Mean Corpuscular Hemoglobin 32.1 pg (27.0-31.0); Mean Corpuscular Volume 93.1 fl (78.0-98.0); Mean Platelet Volume 9.8 fL (7.4-10.4); Platelet Count 142 10x3/uL (130-400); RBC Distribution Width 13.4 % (11.5-14.5); Red Blood Cell (RBC) Count 4.49 mill/uL (4.70-6.10); White Blood Cell (WBC) Count 6.4 10x3/uL (4.8-10.8)
[2023-12-07 05:34] LABS: ALT (SGPT) 12 U/L (8-55); AST (SGOT) 16 U/L (5-34); Albumin 3.9 g/dL (3.4-4.8); Alkaline Phosphatase 53 U/L (40-110); Anion Gap 13 mmol/L (10-20); BUN (Urea Nitrogen) 22 mg/dL (8.4-25.7); Bilirubin, Total 1.8 mg/dL (0.2-1.2); Calc. Creatinine Clearance 91 mL/min (70-130); Calcium 8.8 mg/dL (7.8-10.44); Carbon Dioxide 27 mmol/L (23-31); Chloride 95 mmol/L (98-107); Estimated GFR 90; Globulin 2.3 g/dL (2.4-3.5); Glucose 150 mg/dL (83-110); Potassium 3.8 mmol/L (3.5-5.1); Protein, Total 6.2 g/dL (5.8-8.1); Sodium 131 mmol/L (136-145)
[2023-12-07] MEDS: Bisacodyl 5 MG TAB PO SCH (17:52)
[2023-12-08] MEDS ORDERED: PEGFILGRASTIM-JMDB 6 MG/0.6 ML SYRINGE SQ SCH (06:00)
[2023-12-08 06:21] LABS: #Monocytes 0.2 thou/uL (0.11-0.59); #Neutrophils 6.2 thou/uL (1.40-6.50); %Monocytes 3.4 % (0.0-10.0); %Neutrophils 92.3 % (42.0-75.0); Hematocrit 40.9 % (42.0-52.0); Mean Corpuscular HGB CONC 34.2 g/dL (32.0-36.0); Mean Corpuscular Hemoglobin 32.6 pg (27.0-31.0); Mean Corpuscular Volume 95.3 fl (78.0-98.0); Mean Platelet Volume 9.7 fL (7.4-10.4); Platelet Count 137 10x3/uL (130-400); RBC Distribution Width 13.6 % (11.5-14.5); Red Blood Cell (RBC) Count 4.29 mill/uL (4.70-6.10); White Blood Cell (WBC) Count 6.7 10x3/uL (4.8-10.8)
[2023-12-08 06:46] LABS: ALT (SGPT) 14 U/L (8-55); AST (SGOT) 18 U/L (5-34); Alkaline Phosphatase 56 U/L (40-110); Anion Gap 12 mmol/L (10-20); BUN (Urea Nitrogen) 24 mg/dL (8.4-25.7); Bilirubin, Total 1.9 mg/dL (0.2-1.2); Calc. Creatinine Clearance 100 mL/min (70-130); Calcium 8.9 mg/dL (7.8-10.44); Carbon Dioxide 28 mmol/L (23-31); Chloride 97 mmol/L (98-107); Estimated GFR 94; Globulin 2.3 g/dL (2.4-3.5); Glucose 135 mg/dL (83-110); Potassium 3.7 mmol/L (3.5-5.1); Protein, Total 6.3 g/dL (5.8-8.1); Sodium 133 mmol/L (136-145)
[2023-12-08 10:10] VITALS: BP 127/86; TEMP 97.6
== END 2023-12-08 09:55 | disposition home or self-care (01) | DRG 824 ==
LOC: 2SW 22:10 → OBSVTOIN 23:15 → 2SW 12-02 12:17 → MSONC 12-04 14:30
PROVIDERS: ADMIT Student in an Organized Health Care Education/Training Program; ATTEND Family Medicine
PROC: 0W993ZZ Drainage of Right Pleural Cavity, Percutaneous Approach (ICD-10-PCS; principal; 2023-11-28)
PROC: 07BD3ZX Excision of Aortic Lymphatic, Percutaneous Approach, Diagnostic (ICD-10-PCS; 2023-11-30)
PROC: 5A09357 Assistance with Respiratory Ventilation, Less than 24 Consecutive Hours, Continuous Positive Airway Pressure (ICD-10-PCS; 2023-12-01)
PROC: 3E033XZ Introduction of Vasopressor into Peripheral Vein, Percutaneous Approach (ICD-10-PCS; 2023-12-03)
PROC: 0JH60WZ Insertion of Totally Implantable Vascular Access Device into Chest Subcutaneous Tissue and Fascia, Open Approach (ICD-10-PCS; 2023-12-05)
PROC: 02HV33Z Insertion of Infusion Device into Superior Vena Cava, Percutaneous Approach (ICD-10-PCS; 2023-12-05)
PROC: B5181ZA Fluoroscopy of Superior Vena Cava using Low Osmolar Contrast, Guidance (ICD-10-PCS; 2023-12-05)
DX: C77.9 Secondary and unspecified malignant neoplasm of lymph node, unspecified (principal); C25.9 Malignant neoplasm of pancreas, unspecified; C78.6 Secondary malignant neoplasm of retroperitoneum and peritoneum; J90 Pleural effusion, not elsewhere classified; N17.9 Acute kidney failure, unspecified; J93.9 Pneumothorax, unspecified; J91.8 Pleural effusion in other conditions classified elsewhere; Z66 Do not resuscitate; I10 Essential (primary) hypertension; Z51.5 Encounter for palliative care; E78.5 Hyperlipidemia, unspecified; E03.9 Hypothyroidism, unspecified; F32.A Depression, unspecified; N40.0 Benign prostatic hyperplasia without lower urinary tract symptoms; Z91.048 Other nonmedicinal substance allergy status; Z79.899 Other long term (current) drug therapy; Z79.82 Long term (current) use of aspirin; I25.10 Atherosclerotic heart disease of native coronary artery without angina pectoris; Z98.890 Other specified postprocedural states; Z95.0 Presence of cardiac pacemaker; R59.0 Localized enlarged lymph nodes
CPT/HCPCS: 36415; 36416; 49180; 71045; 71275; 74177; 77002; 77012; 80048; 80053; 81001; 82150; 82945; 83605; 83615; 83690; 83735; 83880; 84157; 84484; 85025; 85060; 85610; 86301; 87040; 87070; 87076; 87102; 87116; 87205; 87206; 88112; 88305; 88333; 88334; 88341; 88342; 89051; 94640; 96374; 96375; C1788; C2627; J0171; J0461; J0640; J0665; J1100; J1200; J1453; J1630; J1642; J1650; J2001; J2250; J2270; J2272; J2405; J2469; J2550; J2704; J2765; J3010; J3230; J3360; J3490; J7050; J7070; J7620; J8540; J9190; J9206; J9263; Q0162; Q0169; Q9967

== ENCOUNTER 2023-12-10 09:16 | Day surgery (SDC) | payer MEDICARE ==
[~2023-12-10 09:16] MED LIST changes: -Dexamethasone 20 MG/5 ML VIAL ONE; -Glycopyrrolate 0.2 MG/ML 5 ML SYRINGE ONE; -Ketorolac Tromethamine 30 MG/ML VIAL ONE; -Lidocaine 1% PF 5 ML VIAL ONE; -Ondansetron PF 4 MG/2 ML Vial ONE; +PEGFILGRASTIM-JMDB 6 MG/0.6 ML SYRINGE SQ SCH; -PROPOFOL 200 MG/20 ML VIAL ONE; -ePHEDrine 50 MG/ML VIAL ONE
[2023-12-10] MEDS: PEGFILGRASTIM-JMDB 6 MG/0.6 ML SYRINGE ONE (09:23)
[2023-12-10] MEDS: Sodium Chloride 0.9% 1,000 ML IV SCH (09:44)
[2023-12-10 10:05] VITALS: TEMP 97.8
[2023-12-10] MEDS ORDERED: Ondansetron PF 4 MG/2 ML Vial ONE (10:26)
[2023-12-10] MEDS: Ondansetron PF 4 MG/2 ML Vial IVP SCH (10:27)
[2023-12-10 11:12] VITALS: BP 114/70
== END 2023-12-10 11:18 | disposition home or self-care (01) ==
LOC: ONC/OP 09:16
PROVIDERS: ATTEND Internal Medicine
DX: D75.1 Secondary polycythemia (principal); D50.8 Other iron deficiency anemias; C25.3 Malignant neoplasm of pancreatic duct; Z91.048 Other nonmedicinal substance allergy status
CPT/HCPCS: 96361; 96372; 96374; J2506; J1642; J2405

== ENCOUNTER 2024-01-05 15:54 | Emergency (ER) | payer MEDICARE ==
[2024-01-05 16:50] LABS: Hematocrit 37.3 % (42.0-52.0); Hemoglobin 12.5 g/dL (14.0-18.0); Manual Diff?? YES; Mean Corpuscular HGB CONC 33.5 g/dL (32.0-36.0); Mean Corpuscular Hemoglobin 32.9 pg (27.0-31.0); Mean Corpuscular Volume 98.2 fl (78.0-98.0); Mean Platelet Volume 9.8 fL (7.4-10.4); Platelet Count 141 10x3/uL (130-400); RBC Distribution Width 16.7 % (11.5-14.5); White Blood Cell (WBC) Count 20.7 10x3/uL (4.8-10.8)
[2024-01-05 16:51] LABS: Delete Auto Diff?? YES
[2024-01-05 17:15] LABS: ALT (SGPT) 17 U/L (8-55); AST (SGOT) 21 U/L (5-34); Albumin 3.3 g/dL (3.4-4.8); Alkaline Phosphatase 139 U/L (40-110); Anion Gap 14 mmol/L (10-20); BUN (Urea Nitrogen) 15 mg/dL (8.4-25.7); Bilirubin, Total 0.9 mg/dL (0.2-1.2); Calc. Creatinine Clearance 0 mL/min (70-130); Calcium 8.2 mg/dL (7.8-10.44); Carbon Dioxide 24 mmol/L (23-31); Chloride 99 mmol/L (98-107); Estimated GFR 94; Globulin 2.2 g/dL (2.4-3.5); Glucose 127 mg/dL (83-110); Lipase 13 U/L (8-78); Magnesium 1.8 mg/dL (1.6-2.6); Potassium 3.7 mmol/L (3.5-5.1); Protein, Total 5.5 g/dL (5.8-8.1); Sodium 133 mmol/L (136-145)
[2024-01-05] MEDS ORDERED: Ondansetron PF 4 MG/2 ML Vial ONE (17:16)
[2024-01-05 17:17] LABS: Troponin I 0.033 ng/mL (< 0.028)
[2024-01-05 17:27] LABS: Anisocytosis MODERATE=16-30 cells HPF (0-5); Band 2 % (5-11); CellaVision Operator ID lab.dlt; Lymphocytes 1 % (21-51); Monocytes 2 % (0-10); Neutrophil 94 % (42-75); Platelet Adequacy Comment Platelets Normal; Poikilocytosis SLIGHT = 6-15 cells HPF (0-5); Polychromasia SLIGHT = 2-3 cells HPF (0-2); Reactive Lymphocytes 1 % (0-10); Schistocytes SLIGHT = 2-5 cells HPF (0-1); Total Cell Count 103
[2024-01-05 19:25] LABS: Bacteria/HPF None Seen HPF (None Seen); Bilirubin Negative (Negative); Blood, Urine Negative (Negative); CAUTI Indications for Culture Pelvic or flank pain; Clarity Clear (Clear); Glucose, Urine (Dipstick) Normal (Negative); Ketone, Urine Negative (Negative); Leukocyte Negative Leu/uL (Negative); Nitrite Negative (Negative); Protein, Urine (Dipstick) Negative (Neg-Trace); RBC/HPF 0-3 HPF (0-3); Squamous Epithelial None Seen HPF (0-3); Urobilinogen Normal mg/dL (Less than 2); WBC/HPF 0-3 HPF (0-3); pH, Urine 7.5 (5.0-9.0)
[2024-01-05 19:26] LABS: Urine Culture Reflex No No
[2024-01-05] MEDS ORDERED: HYDROmorphone 0.5 MG/0.5 ML SYRINGE ONE (21:27)
== END 2024-01-05 22:45 | disposition home or self-care (01) ==
LOC: ERS 15:54
DX: E86.0 Dehydration (principal); K52.9 Noninfective gastroenteritis and colitis, unspecified; C25.9 Malignant neoplasm of pancreas, unspecified; I25.10 Atherosclerotic heart disease of native coronary artery without angina pectoris; I10 Essential (primary) hypertension
CPT/HCPCS: 71045; 74176; 80053; 81001; 83605; 83690; 83735; 84484; 85025; 93005; 96361; 96374; 96375; J1170; J2405

== ENCOUNTER 2024-04-02 11:23 | Outpatient (CLI) | payer MEDICARE | END 2024-04-02 11:24 | disposition home or self-care (01) | LOC: DTY/OP 11:23 | PROVIDERS: ATTEND Internal Medicine | DX: C25.3 Malignant neoplasm of pancreatic duct (principal); K31.84 Gastroparesis | CPT/HCPCS: 97802 ==

== ENCOUNTER 2024-06-25 13:25 | Inpatient (IN) | payer OTHER ==
[2024-06-25] MEDS ORDERED: Morphine 2 MG/ML VIAL SLOW IVP PRN (13:38)
[2024-06-25] MEDS ORDERED: Morphine 4 MG/ML VIAL SLOW IVP PRN (13:39)
[2024-06-25] MEDS ORDERED: Lorazepam 2 MG/ML VIAL SLOW IVP PRN (13:40)
[2024-06-25] MEDS ORDERED: Haloperidol Lactate 5 MG/ML VIAL SLOW IVP PRN ×2 (13:41→13:44)
[2024-06-25] MEDS ORDERED: diphenhydrAMINE 25 MG CAP PO PRN (13:42)
[2024-06-25] MEDS ORDERED: diphenhydrAMINE 50 MG/ML VIAL IVP PRN (13:42)
[2024-06-25] MEDS ORDERED: Ondansetron PF 4 MG/2 ML Vial IVP PRN (13:43)
[2024-06-25] MEDS ORDERED: Atropine Sulfate 1% Ophth Soln 5 ml Bottle SL PRN (13:47)
[2024-06-25] MEDS ORDERED: Bisacodyl 10 MG SUPP PR PRN (13:48)
[2024-06-25] MEDS: Morphine 4 MG/ML VIAL SLOW IVP SCH (14:00)
[2024-06-25] MEDS: Lorazepam 2 MG/ML VIAL SLOW IVP SCH (14:00)
[2024-06-25 16:53] VITALS: BMI 20.7
[2024-06-25] MEDS: Glycopyrrolate 0.2 MG/ML 5 ML SYRINGE SLOW IVP PRN (22:10)
[2024-06-26 20:58] VITALS: BP 111/75; TEMP 99.3
== END 2024-06-27 03:50 | disposition expired | DRG 381 ==
LOC: CCU 13:25 → MSONC 21:24
PROVIDERS: ADMIT Family Medicine; ATTEND Family Medicine
DX: K31.1 Adult hypertrophic pyloric stenosis (principal); C25.9 Malignant neoplasm of pancreas, unspecified; J90 Pleural effusion, not elsewhere classified; Z66 Do not resuscitate; I10 Essential (primary) hypertension; I25.10 Atherosclerotic heart disease of native coronary artery without angina pectoris; T45.1X5A Adverse effect of antineoplastic and immunosuppressive drugs, initial encounter; I48.91 Unspecified atrial fibrillation; Z95.1 Presence of aortocoronary bypass graft; Z92.3 Personal history of irradiation; Z79.890 Hormone replacement therapy; Z79.899 Other long term (current) drug therapy; Z91.49 Other personal history of psychological trauma, not elsewhere classified
CPT/HCPCS: J2060; J2272